=== PATIENT | male | born 1995 | race Caucasian/White ===

== ENCOUNTER 2018-02-11 02:52 | Emergency (ER) | payer OTHER ==
[2018-02-11] MEDS: MORPHINE 10 MG/ML 1ML VIAL (J2270) IM (03:47)
[2018-02-11] MEDS: NORCO 5/325MG TABLET (BULK FOR ED) PO (04:52)
== END 2018-02-11 04:56 | disposition home or self-care (01) ==
LOC: M ED 02:52
DX: S82.445A Nondisplaced spiral fracture of shaft of left fibula, initial encounter for closed fracture (principal); S82.62XA Displaced fracture of lateral malleolus of left fibula, initial encounter for closed fracture; W10.8XXA Fall (on) (from) other stairs and steps, initial encounter; Y92.009 Unspecified place in unspecified non-institutional (private) residence as the place of occurrence of the external cause; F17.200 Nicotine dependence, unspecified, uncomplicated
CPT/HCPCS: J2270

== ENCOUNTER 2018-06-26 11:19 | Emergency (ER) | payer OTHER ==
[~2018-06-26] VITALS: Ht 185.4 cm; Wt 92.5 kg
[2018-06-26] MEDS ORDERED: ACETAMINOPHEN 325 MG TAB PO ONE (12:00)
--- NOTE | 2018-06-26 12:14 | REP ---
CT Head without contrast HISTORY: Fall COMPARISON: None There is no intraparenchymal hemorrhage, acute infarct, mass or midline shift. The ventricular system is normal in appearance. There is no extra cerebral collection. There is no fracture. The visualized sinuses are clear. IMPRESSION: There is no intracranial lesion. Electronically Signed by Bob Boykin MD 06/26/2018 12:06 P
[2018-06-26 12:41] VITALS: BP 130/67
== END 2018-06-26 12:46 | disposition home or self-care (01) ==
LOC: M ED 11:19
DX: S06.0X1A Concussion with loss of consciousness of 30 minutes or less, initial encounter (principal); W00.0XXA Fall on same level due to ice and snow, initial encounter; Y92.139 Unspecified place military base as the place of occurrence of the external cause; Y99.1 Military activity; F17.210 Nicotine dependence, cigarettes, uncomplicated

== ENCOUNTER 2019-08-09 01:33 | Emergency (ER) | payer OTHER ==
[~2019-08-09] VITALS: Ht 185.4 cm; Wt 87.7 kg
[2019-08-09 01:41] VITALS: BP 127/89
== END 2019-08-09 03:16 | disposition home or self-care (01) ==
LOC: M ED 01:33
DX: F10.10 Alcohol abuse, uncomplicated (principal); F41.8 Other specified anxiety disorders

== ENCOUNTER 2019-11-30 17:55 | Emergency (ER) | payer OTHER ==
[~2019-11-30] VITALS: Ht 185.4 cm; Wt 90.0 kg
[2019-11-30 18:25] LABS: HEMATOCRIT 50.4 % (42.0-52.0); HEMOGLOBIN 17.8 g/dl (13.5-17.5); MEAN CORPUSCULAR HEMOGLOBIN 31.9 pg (27.0-33.0); MEAN CORPUSCULAR HGB CONC 35.3 g/dl (32.0-36.5); MEAN CORPUSCULAR VOLUME 90.3 fl (80.0-96.0); PLATELET COUNT, AUTOMATED 227 10^3/uL (150-450); RED BLOOD COUNT 5.58 10^6/uL (4.30-6.10); WHITE BLOOD COUNT 12.7 10^3/uL (4.0-10.0)
[2019-11-30 18:48] LABS: AMPHETAMINES LEVEL URINE NEGATIVE (NEGATIVE); BARBITURATES URINE NEGATIVE (NEGATIVE); BENZODIAZEPINES URINE NEGATIVE (NEGATIVE); CANNABINOIDS URINE NEGATIVE (NEGATIVE); COCAINE METABOLITE URINE NEGATIVE (NEGATIVE); METHADONE URINE NEGATIVE (NEGATIVE); OPIATES URINE NEGATIVE (NEGATIVE); PHENCYCLIDINE URINE NEGATIVE (NEGATIVE)
[2019-11-30 19:02] LABS: ACETAMINOPHEN LEVEL < 2.0 UG/ML (10.0-30.0); ALBUMIN 4.6 GM/DL (3.2-5.2); ALT/SGPT 76 U/L (12-78); BILIRUBIN,DIRECT 0.2 MG/DL (0.0-0.2); BILIRUBIN,TOTAL 0.5 MG/DL (0.2-1.0); BLOOD UREA NITROGEN 10 MG/DL (7-18); CARBON DIOXIDE LEVEL 24 MEQ/L (21-32); CHLORIDE LEVEL 109 MEQ/L (98-107); CREATININE FOR GFR 1.01 MG/DL (0.70-1.30); ETHYL ALCOHOL (ETHANOL) 0.257 % (0.000-0.010); GLOMERULAR FILTRATION RATE > 60.0 (>60); GLUCOSE, FASTING 90 MG/DL (70-100); POTASSIUM SERUM 3.8 MEQ/L (3.5-5.1); SALICYLATE LEVEL 3.4 MG/DL (5.0-30.0); SODIUM LEVEL 142 MEQ/L (136-145); TOTAL PROTEIN 8.3 GM/DL (6.4-8.2)
[2019-11-30] MEDS ORDERED: OXAZEPAM 10 MG CAP PO ONE (22:45)
[2019-12-01 03:55] VITALS: BP 125/85
== END 2019-12-01 04:21 | disposition home or self-care (01) ==
LOC: EDBD 17:55 → M ED 17:55
DX: F10.229 Alcohol dependence with intoxication, unspecified (principal); Y90.1 Blood alcohol level of 20-39 mg/100 ml
CPT/HCPCS: 36415; 80048; 80076; 80307; 84443; 85027; 99284; G0480

== ENCOUNTER 2020-09-05 20:08 | Emergency (ER) | payer OTHER ==
[~2020-09-05] VITALS: Ht 185.4 cm; Wt 91.6 kg
[2020-09-05 20:10] VITALS: BP 141/95
[2020-09-05] MEDS ORDERED: methocarbamoL 750 MG TAB PO ONE (21:05)
--- NOTE | 2020-09-05 21:40 | REPVR ---
PROCEDURE INFORMATION: Exam: XR Right Wrist Exam date and time: 09/05/2020 9:23 PM Age: 25 years old Clinical indication: Pain; Wrist; Right TECHNIQUE: Imaging protocol: XR Right wrist. Views: 3 or more views. COMPARISON: No relevant prior studies available. 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 The lunate is absent with direct articulation of the capitate with the distal radius. The triquetrum appears to be absent as well with nothing articulating with the proximal aspect of the hamate. The pisiform appears to be present. No acute fracture. Soft tissues: Normal. IMPRESSION: 1. Absence of the lunate with direct articulation of the capitate with the distal radius and apparent absence of the triquetrum with no osseous structure along the proximal aspect of the hamate. 2. 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 3. Otherwise negative right wrist. No acute fracture. Electronically signed by: Atul James On 09/05/2020 21:40:54 PM
[2020-09-05] MEDS ORDERED: predniSONE 20 MG TAB PO ONE (22:10)
[2020-09-05] MEDS ORDERED: PRED20TA PO (22:13)
--- NOTE | 2020-09-07 13:22 | ED PDOC ---
Post-Departure Follow-Up right wrist film faxed to [facility] and [facility] in [place] for fu Alonso Espinoza MD Sep 07, 2020 13:22
== END 2020-09-05 22:22 | disposition home or self-care (01) ==
LOC: M ED 20:08
DX: M25.531 Pain in right wrist (principal); Z87.891 Personal history of nicotine dependence

== ENCOUNTER 2020-11-15 16:09 | Emergency (ER) | payer OTHER ==
[~2020-11-15] VITALS: Ht 188 cm; Wt 93.5 kg
[~2020-11-15 16:09] MED LIST: PRED20TA PO
[2020-11-15] MEDS ORDERED: NAPR500T6 PO (16:17)
[2020-11-15 19:12] LABS: HEMATOCRIT 48.9 % (42.0-52.0); MEAN CORPUSCULAR HEMOGLOBIN 30.8 pg (27.0-33.0); MEAN CORPUSCULAR HGB CONC 32.7 g/dl (32.0-36.5); MEAN CORPUSCULAR VOLUME 94.2 fl (80.0-96.0); PLATELET COUNT, AUTOMATED 252 10^3/uL (150-450); RED BLOOD COUNT 5.19 10^6/uL (4.30-6.10)
[2020-11-15 19:26] LABS: ATYPICAL LYMPH 5 % (0-5); EOSINOPHILS 1 % (0-3); LYMPHOCYTES 22 % (16-44); MONOCYTES 6 % (0-5); NEUTROPHILS 66 % (28-66); PLATELET ESTIMATE NORMAL (NORMAL)
[2020-11-15 19:32] LABS: ERYTHROCYTE SEDIMENTATION RATE 1 mm/hr (0-15)
--- NOTE | 2020-11-15 19:32 | REP ---
INDICATION: swelling COMPARISON: None. TECHNIQUE: AP, lateral, bilateral oblique views of the left elbow. FINDINGS: No acute fracture or dislocation is appreciated. Joint spaces and surrounding soft tissues appear normal. Lateral view demonstrates normal positioning to the anterior and posterior fat pads without evidence for effusion/hemarthrosis. No subcutaneous emphysema or foreign body identified. IMPRESSION: Normal elbow radiographs. <Electronically signed by Jerardo Us > 11/15/20 [id number]
[2020-11-15] MEDS ORDERED: BACTRIM 160MG/800MG DS TAB PO ONE (20:50)
[2020-11-15] MEDS ORDERED: cefTRIAXone SOD 1 GM in D5W MINI-BAG PLUS 50 ML IV ONE (20:50)
[2020-11-15] MEDS ORDERED: BACT800T5 PO (21:06)
[2020-11-15] MEDS ORDERED: INDO-16 PO (21:10)
[2020-11-15] MEDS ORDERED: INDOMETHACIN 25 MG CAP PO ONE (21:15)
[2020-11-15 21:48] VITALS: BP 136/64
--- NOTE | 2020-11-16 14:24 | ER ---
ER CONSULTATION DATE: 11/15/2020 REASON FOR CONSULTATION: Left elbow swelling and pain. HISTORY OF PRESENT ILLNESS: This 25-year-old man presented this evening to the emergency department after about 12 hours of left elbow posterior pain, swelling and redness. He did a difficult workout that really focused a lot on triceps extension and upper body last evening from 8-9 pm, now about 24 hours ago. He also did full body exercise. Does state that he has history of right elbow olecranon bursitis on the other side but nothing as bad as this. He woke up this morning and it had become red, warm, hot and painful in the posterior aspect of his left elbow. He is in the . He did not have any trauma or hit his left elbow. No foreign body. No fevers, chills, nausea, vomiting or other constitutional symptoms, he feels well. MEDICAL HISTORY: None. SURGICAL HISTORY: Tonsils removed, left ankle fracture open reduction and internal fixation and Kienbock's of right lunate. SOCIAL HISTORY: He is in the . He is right hand dominant. He vapes, does not use tobacco products, does not use intravenous drugs or methamphetamines. ALLERGIES: NO KNOWN DRUG ALLERGIES. MEDICATIONS: None. PHYSICAL EXAMINATION: Well appearing 25-year-old man, he appears nontoxic. He is overall pleasant and in no acute distress. Vital signs: Temperature 99.0, pulse rate 86, blood pressure 133/93, respiratory rate 18, 96% on room air. Inspection of bilateral upper extremities reveals moderate amount of redness, warmth and swelling overlying the left olecranon bursa area. His range of motion is full, 0-135 degrees, full pronation and supination, no pain which passive or active flexion/extension of the elbow. No obvious effusion. No drainage, no obvious foreign body. No pain in the shoulder or wrist. Forearm compartments are soft. Normal sensation and motor function of the hand. Hand is warm and well perfused, strong radial pulse. Normal sensation and motor function of median, radial and ulnar nerves as well AIN/PIN. LABORATORY DATA: Blood work revealed white blood cell count to 18. Nucleated cell percentage not performed. Neutrophils total 66, lymphocytes manual 22, monocytes 6. ESR 1, CRP under 0.3. Lactic acid 1.2. IMAGING DATA: Radiographs of the elbow were taken and reviewed by myself as well as radiologist and states normal left elbow radiographs. ASSESSMENT/PLAN: This 25-year-old man appears to have an infected left elbow olecranon bursitis. There are no signs of acute septic elbow or intraarticular process. This has been going on now for about 12 hours and he is young and healthy without risk factors. Therefore my opinion is outpatient antibiotic and antiinflammatory treatment is certainly reasonable first step. This will be with broad spectrum MRSA coverage which we have decided to treat with 10 days of oral Bactrim as well as one dose of intravenous Ceftriaxone in the emergency department. He should have close follow up with the physicians at [facility] and we have counseled him on red flag symptoms and when to return to the ED if needed such as spreading redness, increased fevers, warmth, difficulty or inability to move the elbow and other red flag symptoms. If he fails to improve on outpatient antibiotics consideration will be given to aspiration and/or excision and irrigation and debridement of the bursa area. He understands and had no further questions and may be discharged home today with close outpatient follow up. CAT
== END 2020-11-15 21:50 | disposition home or self-care (01) ==
LOC: M ED 16:09
DX: M71.122 Other infective bursitis, left elbow (principal); Z77.098 Contact with and (suspected) exposure to other hazardous, chiefly nonmedicinal, chemicals
CPT/HCPCS: 73080; 80047; 83605; 85025; 85652; 86140; 87040; 96365; 99284; J0696

== ENCOUNTER 2021-03-13 15:26 | Inpatient (IN) | payer OTHER ==
[~2021-03-13] VITALS: Ht 182.9 cm; Wt 130.0 kg
[~2021-03-13 15:26] MED LIST changes: +BACT800T5 PO; +INDO-16 PO; +NAPR500T6 PO
[2021-03-13 18:09] LABS: HEMATOCRIT 51.4 % (42.0-52.0); HEMOGLOBIN 17.7 g/dl (13.5-17.5); MEAN CORPUSCULAR HEMOGLOBIN 31.5 pg (27.0-33.0); MEAN CORPUSCULAR HGB CONC 34.4 g/dl (32.0-36.5); MEAN CORPUSCULAR VOLUME 91.5 fl (80.0-96.0); PLATELET COUNT, AUTOMATED 232 10^3/uL (150-450); RED BLOOD COUNT 5.62 10^6/uL (4.30-6.10); WHITE BLOOD COUNT 11.5 10^3/uL (4.0-10.0)
[2021-03-13 18:32] LABS: AMPHETAMINES LEVEL URINE NEGATIVE (NEGATIVE); BARBITURATES URINE NEGATIVE (NEGATIVE); BENZODIAZEPINES URINE NEGATIVE (NEGATIVE); CANNABINOIDS URINE NEGATIVE (NEGATIVE); COCAINE METABOLITE URINE NEGATIVE (NEGATIVE); METHADONE URINE NEGATIVE (NEGATIVE); OPIATES URINE NEGATIVE (NEGATIVE); PHENCYCLIDINE URINE NEGATIVE (NEGATIVE)
[2021-03-13 18:46] LABS: ACETAMINOPHEN LEVEL < 2.0 UG/ML (10.0-30.0); ALT/SGPT 50 U/L (12-78); BILIRUBIN,DIRECT 0.1 MG/DL (0.0-0.2); BILIRUBIN,TOTAL 0.8 MG/DL (0.2-1.0); BLOOD UREA NITROGEN 19 MG/DL (7-18); CALCIUM LEVEL 9.2 MG/DL (8.5-10.1); CARBON DIOXIDE LEVEL 27 MEQ/L (21-32); CHLORIDE LEVEL 104 MEQ/L (98-107); CREATININE FOR GFR 1.14 MG/DL (0.70-1.30); ETHYL ALCOHOL (ETHANOL) < 0.003 % (0.000-0.010); GLOMERULAR FILTRATION RATE > 60.0 (>60); GLUCOSE, FASTING 92 MG/DL (70-100); POTASSIUM SERUM 4.5 MEQ/L (3.5-5.1); SALICYLATE LEVEL < 1.7 MG/DL (5.0-30.0); SODIUM LEVEL 138 MEQ/L (136-145); TOTAL PROTEIN 7.4 GM/DL (6.4-8.2)
[2021-03-13 22:02] LABS: RSV AMPLIFICATION NEGATIVE (NEGATIVE)
[2021-03-13] MEDS ORDERED: MOM 30ML SUSPENSION UDC PO PRN (22:30)
[2021-03-13] MEDS ORDERED: ACETAMINOPHEN TAB 650MG DOSE (2X325MG) PO PRN (22:30)
[2021-03-13] MEDS ORDERED: MAALOX 30 ML SUSP *UDC PO PRN (22:30)
[2021-03-13] MEDS ORDERED: HOME MED LIST COMPLETE! XX SCH (22:45)
[2021-03-14] MEDS: traZODone 50 MG TAB PO PRN ×2 (00:36→20:11)
[2021-03-14 01:02] VITALS: BP 138/80
[2021-03-14 06:00] VITALS: BP 123/74
[2021-03-14] MEDS ORDERED: INFLUENZA QUADRIVALENT PF VACCINE 0.5ML SYRINGE IM ONE (09:00)
[2021-03-14] MEDS: NICOTINE 14 MG/24 HR TRANSDERMAL TD SCH (09:00)
[2021-03-14] MEDS: SERTRALINE HCL 50 MG TAB PO SCH (10:00)
--- NOTE | 2021-03-14 12:15 | HPEPDOC ---
General Date of Admission Mar 13, 2021 at 22:28 Date of Service: Mar 14, 2021 Chief Complaint The patient is a 25-year-old male admitted with a reason for visit of Unspecified Depressive Disorder. Source: Patient Exam Limitations: No limitations History of Present Illness Patient is 25 years old male without significant past medical history presented to hospital with suicidal ideation. Patient stated that he drank heavily all weekend and developed some suicidal ideation. Patient stated that he usually drinks on weekend. He denied any history of depression or anxiety. During my interview patient denied fever, chills, chest pain, palpitations, diarrhea or dysuria Home Medications No Active Prescriptions or Reported Meds Allergies Coded Allergies: No Known Allergies (Unverified , 06/26/18) Past Medical History Medical History No known medical history Family History Mother from heroin overdose Father is alcoholic Social History * Smoker: current smoker Alcohol: heavy Drugs: denies A-FIB/CHADSVASC A-FIB History Current/History of A-Fib/PAF?: No Current PO Anticoag Therapy: No Review of Systems Constitutional: Denies: Chills Eyes: Denies: Pain ENT: Denies: Head Aches Skin: Denies: Lesions Pulmonary: Denies: Dyspnea Cardiovascular: Denies: Chest Pain Gastrointestinal: Denies: Nausea Genitourinary: Denies: Dysuria Hematologic: Denies: Bruising Endocrine: Denies: Polydipsia Musculoskeletal: Denies: Neck Pain Neurological: Denies: Weakness Psych: Reports: Depression Physical Examination General Exam: Positive: Alert Eye Exam: Positive: PERRLA ENT Exam: Positive: Atraumatic Neck Exam: Positive: Supple; Negative: JVD Chest Exam: Positive: Clear to auscultation Heart Exam: Positive: Rate Normal Telemetry: Positive: No significant arrhythmia Abdomen Exam: Positive: Normal bowel sounds Extremity Exam: Negative: Clubbing Skin Exam: Positive: Nl turgor and temperature Neuro Exam: Positive: Normal Gait Psych Exam: Positive: Oriented x 3 Vital Signs Vital Signs Date Time Temp Pulse Resp B/P (MAP) Pulse Ox O2 Delivery O2 Flow Rate FiO2 03/14/21 06:00 98.2 65 14 123/74 (90) 96 03/14/21 01:02 Room Air Laboratory Data Labs 24H Laboratory Tests 2 03/13/21 16:49: Nucleated Red Blood Cells % (auto) 0.0, Anion Gap 7L, Glomerular Filtration Rate > 60.0, Calcium Level 9.2, Total Bilirubin 0.8, Direct Bilirubin 0.1, Aspartate Amino Transf (AST/SGOT) 47H, Alanine Aminotransferase (ALT/SGPT) 50, Alkaline Phosphatase 78, Total Protein 7.4, Albumin 4.0, Albumin/Globulin Ratio 1.2, Thyroid Stimulating Hormone (TSH) 0.590, Salicylates Level < 1.7L, Urine Opiates Screen NEGATIVE, Urine Methadone Screen NEGATIVE, Acetaminophen Level < 2.0L, Urine Barbiturates Screen NEGATIVE, Urine Phencyclidine Screen NEGATIVE, Urine Amphetamines Screen NEGATIVE, Urine Benzodiazepines Screen NEGATIVE, Urine Cocaine Metabolite Screen NEGATIVE, Urine Cannabinoids Screen NEGATIVE, Ethyl Alcohol Level < 0.003 03/13/21 21:19: Coronavirus (COVID-19)(PCR) NEGATIVE, Influenza Type A (RT-PCR) NEGATIVE, Influenza Type B (RT-PCR) NEGATIVE, Respiratory Syncytial Virus (PCR) NEGATIVE CBC/BMP Laboratory Tests 03/13/21 16:49 Assessment/Plan Patient is 25 years old male without significant past medical history presented to hospital with suicidal ideation. Patient stated that he drank heavily all weekend and developed some suicidal ideation. Patient stated that he usually drinks on weekend. He denied any history of depression or anxiety. During my interview patient denied fever, chills, chest pain, palpitations, diarrhea or dysuria Problems (1) Suicidal ideation Status: Acute Problem Text: Defer treatment to psych team Plan / VTE VTE Prophylaxis Ordered?: No VTE Exclusion Mechanical Proph: Low Risk for VTE RUBEN SAXENA DO Mar 14, 2021 12:15
[2021-03-14 18:36] VITALS: BP 152/62
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
[2021-03-15 06:17] VITALS: BP 152/79
[2021-03-15] MEDS: SERTRALINE HCL 50 MG TAB PO SCH (08:07)
[2021-03-15] MEDS: NICOTINE 14 MG/24 HR TRANSDERMAL TD SCH (08:08)
[2021-03-15] MEDS ORDERED: TRAZ-252 PO (10:18)
[2021-03-15] MEDS ORDERED: SERT50TA29 PO (10:18)
[2021-03-15] MEDS ORDERED: NICO14PA TD (10:18)
--- NOTE | 2021-03-15 11:09 | MHDSPDOC ---
[facility] Discharge Summary Discharge Summary DATE OF ADMISSION: Mar 13, 2021 at 22:28 DATE OF DISCHARGE: March 15, 2021 at 1019 DISCHARGE DIAGNOSES: 1. Unspecified depressive disorder 2. Alcohol use disorder 3. Unspecified trauma/stressor disorder 4. Alcohol Induced Depressive Disorder REASON FOR ADMISSION: Patient is a 25 -year-old , male, who, per ED report: "Pt states "I had a lot to drink last night, had a plan to hang myself, draped a rope over the rafter in my room, with the intent to kill myself, then snapped out of it and realized it was stupid." Pt states he has been drinking excessively over the past month over stressors at work. Per history, pt. has been seen for alcohol related instances on a few occasions. 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 Pt states he was sober for the past six months, but has turned to drinking one to two bottles of vodka per weekend. Pt states he wants to live to accomplish more in the , therefore sought help from his [employer] and came for an kaitlin luation. 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 Pt states he feels he let his platoon down. Pt states he lost his mother four years ago to a heroin overdose. Additionally, pt.s father, brother, and sister are alcoholics. Pt states his grandmother and aunt raised him since he was [age]. Pt is single, living in the [place], and considers his [employer] as his main support locally. Pt is superficially interested in seeking help for his alcoholism and states he plans on returning to [facility]. Pt was previously seen by [facility] but has not been compliant with treatment since April 2020. Pt also states he would like to attend and has a friend that will go with him." VITAL SIGNS: See below. CONSULTANTS INVOLVED: See Medical H + P by Hospitalist TREATMENT AND PROGRESS ON THE UNIT: Patient was admitted to the [facility] on a legal status was afforded the following treatment modalities: 1) Individual Therapy 2) Group Therapy 3) Medication Management 4) Milieu Therapy 5) Safe Environment HOSPITAL COURSE: Patient was admitted to [facility] on a 9.39 legal status. He was reporting suicidal ideations which he states was exacerbated by alcohol. He was started on Zoloft for depression and Trazodone for insomnia. Pt found medications beneficial and tolerated them well. Mood, anxiety, and intrusive thoughts improved with treatment. Pt attended groups daily during stay. Pts symptoms improved with treatment. On day of discharge pt. denied depression, anxiety, insomnia, SI/HI, hallucinations, delusions. Pt was discharged home with follow-up with [facility]. Pt felt safe for discharge, denies continued suicidality and reports he has not had any thoughts, planning or intent since prior to his admission. DISCHARGE ASSESSMENT: In today's interview, patient is alert and oriented, pt.s dress is appropriate. Hygiene and grooming is well-kempt. Smiles on approach and is pleasant and engaged in the interview. Denies depression and anxiety. Denies suicidal and homicidal ideation, planning or intent. Denies and is not observed with bairon, psychotic symptoms of delusions, bizarre thinking, obsessions, paranoia, ruminations illogical thoughts, flight of ideas or having poor insight and judgement. Reinforced with patient need to abstain from alcohol and drugs. At discharge patient has normal mentation, declines further hospitalization on a voluntary status and meets criteria for discharge today. Patient encouraged to return to hospital if symptoms worsen or change and encouraged to call unit if he/she/they needs to speak to provider for questions regarding medications or care. He is unsure that he wants to continue the Zoloft but states that he will take the Trazodone as he has had trouble sleeping for awhile. Discussed indications of medications, potential benefits and risks, alternatives (including no treatment) and questions were encouraged and answered. Patient verbalized understanding. 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 Speech: Is fluid, conversant, normal rate, tone and volume Language skills are intact Thought processes including: linear and goal oriented Thought content: denies depression and anxiety. Denies suicidal/homicidal ideation, planning or intent. Abstract reasoning, and computation: fair Description of associations: denies, none observed Description of abnormal or psychotic thoughts: denies, none observed. Judgment: fair Insight: fair Orientation: alert and oriented to person, place, time and situation Recent and remote memory: intact Attention span and concentration: good Language: expansive Fund of knowledge: average Mood: Euthymic Mood Affect: reactive Suicide Risk Assessment: 1) Does the patient wish to be ? No 2) Since your admission, have you had any actual thought of killing yourself? No 3) Since your admission, have you been thinking about how you might do this? No 4) Since your admission, have you had these thoughts and had some intention of acting on them? No 5) Since your admission, have you started to work out or worked out the details of how to kill yourself? No 5A) Do you intent to carry out this plan? No and NA 6) Have you ever done anything, started anything, or prepared to do anything with any intent to ? No 6A) How long since your admission did you do any of these? NA MEDICATIONS ON DISCHARGE: See Medication Reconciliation PLAN/FOLLOWUP ARRANGEMENTS: Patient is being discharged with [employer]. He is following up with Behavioral Health. Have encouraged patient to seek outpatient services for rehab (ETOH) The amount of time spent in the coordination of care for this patient was approximately 25 minutes. ETOH/Disorder Med Rx ETOH/DRUG DISORDER RX: Offrd @ d/c & pt refused Vital Signs/I&Os Vital Signs Date Time Temp Pulse Resp B/P (MAP) Pulse Ox O2 Delivery O2 Flow Rate FiO2 03/15/21 06:17 96.6 56 16 152/79 (103) 100 Room Air Medications Scheduled Nicotine (Nicotine Patch) 14 Mg Patch.td24, 1 PATCH TD DAILY for Nicotine Withdrawal, #7 Sertraline HCl (Sertraline HCl) 50 Mg Tablet, 50 MG PO DAILY for Depression, #7 Scheduled PRN Trazodone HCl (Trazodone HCl) 50 Mg Tablet, 50 MG PO QHSP PRN for INSOMNIA, #7 Allergies Coded Allergies: No Known Allergies (Unverified , 06/26/18) LUCA SANCHEZ NP Mar 15, 2021 10:22
--- NOTE | 2021-03-16 12:44 | MHIPNPDOC ---
[facility] Progress Note Progress Note DATE OF SERVICE: 03/13/21 LATE ENTRY: 03/16/21 This underwriter discussed patient's case with ED staff member and recommended admission since he had SI with hanging, multiple risk factors, recent losses and a h/o alcohol abuse which made him particularly vulnerable. He was admitted to [facility]. Vital Signs Vital Signs Date Time Temp Pulse Resp B/P (MAP) Pulse Ox O2 Delivery O2 Flow Rate FiO2 03/15/21 06:17 96.6 56 16 152/79 (103) 100 Room Air Current Medications Current Medications Medications (Trade) Dose Ordered Sig/Harriet Route PRN Reason Start Time Stop Time Status Last Admin Dose Admin Acetaminophen (Tylenol Tab) 650 mg Q6HP PRN PO HEADACHE or MILD DISCOMFORT 03/13/21 22:30 03/15/21 13:27 DC Al Hydrox/Mg Hydrox/Simethicone (Mylanta) 30 ml Q4HP PRN PO HEARTBURN/INDIGESTION 03/13/21 22:30 03/15/21 13:27 DC Home Med (Home Med List Complete!) ASDIRECTED XX 03/13/21 22:45 03/13/21 22:46 DC Magnesium Hydroxide (Milk Of Magnesia) 30 ml DAILYPRN PRN PO CONSTIPATION 03/13/21 22:30 03/15/21 13:27 DC Nicotine (Nicoderm Cq 14mg) 1 patch DAILY TD 03/14/21 09:00 03/15/21 13:27 DC 03/15/21 08:08 Sertraline HCl (Zoloft) 50 mg DAILY PO 03/14/21 09:00 03/15/21 13:27 DC 03/15/21 08:07 Trazodone HCl (Desyrel) 50 mg QHSP PRN PO INSOMNIA 03/13/21 22:30 03/15/21 13:27 DC 03/14/21 20:11 Allergies Coded Allergies: No Known Allergies (Unverified , 06/26/18) SUZI DAVIS MD Mar 16, 2021 12:44
== END 2021-03-15 13:27 | disposition home or self-care (01) | DRG 881 ==
LOC: M ED 15:26 → M ED INP 22:28 → M PSY 23:50
PROVIDERS: ADMIT Psychiatry & Neurology Psychiatry; ATTEND Psychiatry & Neurology Psychiatry
DX: F32.9 Major depressive disorder, single episode, unspecified (principal); R45.851 Suicidal ideations; F10.14 Alcohol abuse with alcohol-induced mood disorder; F17.200 Nicotine dependence, unspecified, uncomplicated; F43.9 Reaction to severe stress, unspecified; Z81.1 Family history of alcohol abuse and dependence; Z81.8 Family history of other mental and behavioral disorders; Z81.3 Family history of other psychoactive substance abuse and dependence; Z20.822 Contact with and (suspected) exposure to COVID-19

== ENCOUNTER 2021-04-25 01:49 | Emergency (ER) | payer OTHER ==
[~2021-04-25] VITALS: Ht 188 cm; Wt 88.6 kg
--- NOTE | 2021-04-25 01:34 | REPVR ---
PROCEDURE INFORMATION: Exam: CT Head Without Contrast Exam date and time: 04/25/2021 1:18 AM Age: 25 years old Clinical indication: Injury or trauma; Fall; Blunt trauma (contusions or hematomas); Additional info: Fall, AMS, ETOH TECHNIQUE: Imaging protocol: Computed tomography of the head without contrast. Radiation optimization: All CT scans at this facility use at least one of these dose optimization techniques: automated exposure control; mA and/or kV adjustment per patient size (includes targeted exams where dose is matched to clinical indication); or iterative reconstruction. COMPARISON: CT Head without contrast 2018-06-26 11:48 FINDINGS: Brain: Normal. No hemorrhage. Unremarkable white matter. No mass effect. Cerebral ventricles: No ventriculomegaly. Paranasal sinuses: Visualized sinuses are unremarkable. No fluid levels. Mastoid air cells: Visualized mastoid air cells are well aerated. Bones/joints: Calvarium intact without fractures. Soft tissues: Right parietal subgaleal scalp hematoma. Left anterior frontal scalp hematoma. IMPRESSION: 1. No acute intracranial abnormality. 2. Right parietal subgaleal scalp hematoma. Left anterior frontal scalp hematoma. Electronically signed by: Curly Webber On 04/25/2021 01:34:10 AM
--- NOTE | 2021-04-25 01:42 | REPVR ---
PROCEDURE INFORMATION: Exam: CT Cervical Spine Without Contrast Exam date and time: 04/25/2021 1:18 AM Age: 25 years old Clinical indication: Injury or trauma; Fall; Blunt trauma; Additional info: Fall, AMS, ETOH TECHNIQUE: Imaging protocol: Computed tomography images of the cervical spine without contrast. Radiation optimization: All CT scans at this facility use at least one of these dose optimization techniques: automated exposure control; mA and/or kV adjustment per patient size (includes targeted exams where dose is matched to clinical indication); or iterative reconstruction. COMPARISON: CT Head without contrast 2018-06-26 11:48 FINDINGS: Bones/joints: Normal spinal curvature, vertebral body heights, and alignment. No spinal fracture or acute subluxation. Discs/Spinal canal/Neural foramina: No significant disc protrusion. No severe spinal canal stenosis. No significant neural foraminal narrowing. Lungs: Lung apices are normal. Soft tissues: Unremarkable. IMPRESSION: No acute vertebral fracture/subluxation. Electronically signed by: Curly Webber On 04/25/2021 01:42:03 AM
--- NOTE | 2021-04-25 01:46 | REPVR ---
PROCEDURE INFORMATION: Exam: CT Maxillofacial Without Contrast Exam date and time: 04/25/2021 1:18 AM Age: 25 years old Clinical indication: Injury or trauma; Fall; Blunt trauma (contusions or hematomas); Forehead; Additional info: Fall, AMS, ETOH TECHNIQUE: Imaging protocol: Computed tomography images of the face without contrast. Radiation optimization: All CT scans at this facility use at least one of these dose optimization techniques: automated exposure control; mA and/or kV adjustment per patient size (includes targeted exams where dose is matched to clinical indication); or iterative reconstruction. COMPARISON: CT Head without contrast 2018-06-26 11:48 FINDINGS: Limitations: Dental amalgam artifact obscures the oral cavity and oral pharynx. Orbital cavity: Orbits are normal. Globes are unremarkable. Bones/joints: Vague fracture lines through the bilateral mandible ramus are nondisplaced, and appear healing and or chronic, correlate. Paranasal sinuses: Associated odontogenic mild maxillary sinus disease. Soft tissues: Left forehead and lateral periorbital soft tissue contusion and swelling. Scalp contusion. Dental: Dental disease with dental caries and periapical lucencies. IMPRESSION: 1. Vague fracture lines through the bilateral mandible ramus are nondisplaced, and appear healing and or chronic, correlate. 2. Dental disease with dental caries and periapical lucencies. Associated odontogenic mild maxillary sinus disease. Electronically signed by: Curly Webber On 04/25/2021 01:45:25 AM
[~2021-04-25 01:49] MED LIST changes: +NICO14PA TD; +NS 1,000 ML IV ONE; +SERT50TA29 PO; +TRAZ-252 PO
--- OUTSIDE RECORDS SUMMARY | 2021-04-25 01:53 | CCD ---
Author Author [facility] Organization [facility] Address Unknown Phone Unavailable Care Team Providers Care Youtuber Name Role Phone [facility], [facility] [place] Unavailable Unavailable TURRIN, PERRY Unavailable Unavailable TURRIN, PERRY Unavailable Unavailable TURRIN, PERRY Unavailable Unavailable TURRIN, PERRY Unavailable Unavailable BENNETT,, NEW REYES Unavailable Unavailable BENNETT,, NEW REYES Unavailable Unavailable BENNETT,, NEW REYES Unavailable Unavailable BENNETT,, NEW REYES Unavailable Unavailable BENNETT,, NEW REYES Unavailable Unavailable BENNETT,, NEW REYES Unavailable Unavailable BENNETT,, NEW REYES Unavailable Unavailable BENNETT,, NEW REYES Unavailable Unavailable BENNETT,, NEW REYES Unavailable Unavailable BENNETT,, NEW REYES Unavailable Unavailable BENNETT,, NEW AMY Unavailable Unavailable BENNETT,, NEW REYES Unavailable Unavailable BENNETT,, NEW REYES Unavailable Unavailable PFLUGH, TIGIST ORDERING MACHINE OPERATOR Unavailable Unavailable PFLUGH, TIGIST ORDERING MACHINE OPERATOR Unavailable Unavailable PFLUGH, TIGIST ORDERING MACHINE OPERATOR Unavailable Unavailable PFLUGH, TIGIST ORDERING MACHINE OPERATOR Unavailable Unavailable PFLUGH, TIGIST ORDERING MACHINE OPERATOR Unavailable Unavailable PFLUGH, TIGIST ORDERING MACHINE OPERATOR Unavailable Unavailable PFLUGH, TIGIST ORDERING MACHINE OPERATOR Unavailable Unavailable PFLUGH, TIGIST ORDERING MACHINE OPERATOR Unavailable Unavailable PFLUGH, TIGIST ORDERING MACHINE OPERATOR Unavailable Unavailable PFLUGH, TIGIST ORDERING MACHINE OPERATOR Unavailable Unavailable PFLUGH, TIGIST ORDERING MACHINE OPERATOR Unavailable Unavailable PFLUGH, TIGIST ORDERING MACHINE OPERATOR Unavailable Unavailable PFLUGH, TIGIST ORDERING MACHINE OPERATOR Unavailable Unavailable PFLUGH, TIGIST ORDERING MACHINE OPERATOR Unavailable Unavailable PFLUGH, TIGIST ORDERING MACHINE OPERATOR Unavailable Unavailable PFLUGH, TIGIST ORDERING MACHINE OPERATOR Unavailable Unavailable PFLUGH, TIGIST ORDERING MACHINE OPERATOR Unavailable Unavailable PFLUGH, TIGIST ORDERING MACHINE OPERATOR Unavailable Unavailable PFLUGH, TIGIST ORDERING MACHINE OPERATOR Unavailable Unavailable PFLUGH, TIGIST ORDERING MACHINE OPERATOR Unavailable Unavailable PFLUGH, TIGIST ORDERING MACHINE OPERATOR Unavailable Unavailable PFLUGH, TIGIST ORDERING MACHINE OPERATOR Unavailable Unavailable PFLUGH, TIGIST ORDERING MACHINE OPERATOR Unavailable Unavailable PFLUGH, TIGIST ORDERING MACHINE OPERATOR Unavailable Unavailable PFLUGH, TIGIST ORDERING MACHINE OPERATOR Unavailable Unavailable PFLUGH, TIGIST ORDERING MACHINE OPERATOR Unavailable Unavailable PFLUGH, TIGIST ORDERING MACHINE OPERATOR Unavailable Unavailable PFLUGH, TIGIST ORDERING MACHINE OPERATOR Unavailable Unavailable PFLUGH, TIGIST ORDERING MACHINE OPERATOR Unavailable Unavailable PFLUGH, TIGIST ORDERING MACHINE OPERATOR Unavailable Unavailable PFLUGH, TIGIST ORDERING MACHINE OPERATOR Unavailable Unavailable PFLUGH, TIGIST ORDERING MACHINE OPERATOR Unavailable Unavailable PFLUGH, TIGIST ORDERING MACHINE OPERATOR Unavailable Unavailable PFLUGH, TIGIST ORDERING MACHINE OPERATOR Unavailable Unavailable PFLUGH, TIGIST ORDERING MACHINE OPERATOR Unavailable Unavailable PFLUGH, TIGIST ORDERING MACHINE OPERATOR Unavailable Unavailable PFLUGH, TIGIST ORDERING MACHINE OPERATOR Unavailable Unavailable PFLUGH, TIGIST ORDERING MACHINE OPERATOR Unavailable Unavailable PFLUGH, TIGIST ORDERING MACHINE OPERATOR Unavailable Unavailable PFLUGH, TIGIST ORDERING MACHINE OPERATOR Unavailable Unavailable PFLUGH, TIGIST ORDERING MACHINE OPERATOR Unavailable Unavailable PFLUGH, TIGIST ORDERING MACHINE OPERATOR Unavailable Unavailable PFLUGH, TIGIST ORDERING MACHINE OPERATOR Unavailable Unavailable PFLUGH, TIGIST ORDERING MACHINE OPERATOR Unavailable Unavailable PERNELL ARMAS MD Unavailable Unavailable PERNELL ARMAS MD Unavailable Unavailable PERNELL ARMAS MD Unavailable Unavailable PERENLL ARMAS MD Unavailable Unavailable PERNELL ARMAS MD Unavailable Unavailable PERNELL ARMAS MD Unavailable Unavailable PERNELL ARMAS MD Unavailable Unavailable PERNELL ARMAS MD Unavailable Unavailable PERNELL ARMAS MD Unavailable Unavailable PERNELL ARMAS MD Unavailable Unavailable PERNELL ARMAS MD Unavailable Unavailable PERNELL ARMAS MD Unavailable Unavailable PERNELL ARMAS MD Unavailable Unavailable PERNELL ARMAS MD Unavailable Unavailable PERNELL ARMAS MD Unavailable Unavailable PERNELL AMRAS MD Unavailable Unavailable PERNELL ARMAS MD Unavailable Unavailable PERNELL ARMAS MD Unavailable Unavailable PERNELL ARMAS MD Unavailable Unavailable PERNELL ARMAS MD Unavailable Unavailable PERNELL ARMAS MD Unavailable Unavailable PERNELL ARMAS MD Unavailable Unavailable PERNELL ARMAS MD Unavailable Unavailable PERNELL ARMAS MD Unavailable Unavailable PERNELL ARMAS MD Unavailable Unavailable PERNELL RAMAS MD Unavailable Unavailable CHANDAPERNELL TAM MD Unavailable Unavailable CHANDAPERNELL TAM MD Unavailable Unavailable CHANDAPERNELL TAM MD Unavailable Unavailable CHANDAPERNELL TAM MD Unavailable Unavailable CHANDAPERNELL TAM MD Unavailable Unavailable CHANDAPERNELL TAM MD Unavailable Unavailable CHANDAPERNELL TAM MD Unavailable Unavailable CHANDAPERNELL TAM MD Unavailable Unavailable PERNELL ARMAS MD Unavailable Unavailable CHANDAPERNELL TAM MD Unavailable Unavailable CHANDAPERNELL TAM MD Unavailable Unavailable CHANDAPERNELL TAM MD Unavailable Unavailable CHANDAPERNELL TAM MD Unavailable Unavailable CHANDAPERNELL TAM MD Unavailable Unavailable CHANDAPERNELL TAM MD Unavailable Unavailable CHANDAPERNELL TAM MD Unavailable Unavailable CHANDAPERNELL TAM MD Unavailable Unavailable CHANDAPERNELL TAM MD Unavailable Unavailable CHANDAPERNELL TAM MD Unavailable Unavailable PERNELL ARMAS MD Unavailable Unavailable CHANDAPERNELL TAM MD Unavailable Unavailable CHANDAPERNELL TAM MD Unavailable Unavailable PERNELL ARMAS MD Unavailable Unavailable PERNELL ARMAS MD Unavailable Unavailable PERNELL ARMAS MD Unavailable Unavailable PERNELL ARMAS MD Unavailable Unavailable PERNELL ARMAS MD Unavailable Unavailable PERNELL ARMAS MD Unavailable Unavailable PERNELL ARMAS MD Unavailable Unavailable PERNELL ARMAS MD Unavailable Unavailable PERNELL ARMAS MD Unavailable Unavailable PERNELL ARMAS MD Unavailable Unavailable PERNELL ARMAS MD Unavailable Unavailable PERNELL ARMAS MD Unavailable Unavailable PERNELL ARMAS MD Unavailable Unavailable PERNELL ARMAS MD Unavailable Unavailable PERNELL ARMAS MD Unavailable Unavailable PERNELL ARMAS MD Unavailable Unavailable PERNELL ARMAS MD Unavailable Unavailable PERNELL ARMAS MD Unavailable Unavailable PERNELL ARMAS MD Unavailable Unavailable PERNELL ARMAS MD Unavailable Unavailable PERNELL ARMAS MD Unavailable Unavailable PERNELL ARMAS MD Unavailable Unavailable PERNELL ARMAS MD Unavailable Unavailable PERNELL ARMAS MD Unavailable Unavailable PERNELL ARMAS MD Unavailable Unavailable PERNELL ARMAS MD Unavailable Unavailable PERNELL ARMAS MD Unavailable Unavailable PERNELL ARMAS MD Unavailable Unavailable PERNELL ARMAS MD Unavailable Unavailable PERNELL ARMAS MD Unavailable Unavailable PERNELL ARMAS MD Unavailable Unavailable PERNELL ARMAS MD Unavailable Unavailable PERNELL ARMAS MD Unavailable Unavailable PERNELL ARMAS MD Unavailable Unavailable PERNELL ARMAS MD Unavailable Unavailable PERNELL ARMAS MD Unavailable Unavailable PERNELL ARMAS MD Unavailable Unavailable NON, PHYSICIAN STAFF Unavailable Unavailable Re-disclosure Warning The records that you are about to access may contain information from federally-assisted alcohol or drug abuse programs. If such information is present, then the following federally mandated warning applies: This information has been disclosed to you from records protected by federal confidentiality rules (42 CFR part 2). The federal rules prohibit you from making any further disclosure of this information unless further disclosure is expressly permitted by the written consent of the person to whom it pertains or as otherwise permitted by 42 CFR part 2. A general authorization for the release of medical or other information is NOT sufficient for this purpose. The Federal rules restrict any use of the information to criminally investigate or prosecute any alcohol or drug abuse patient.The records that you are about to access may contain highly sensitive health information, the redisclosure of which is protected by Article 27-F of the [facility] Public Health law. If you continue you may have access to information: Regarding HIV / AIDS; Provided by facilities licensed or operated by the [facility] Office of Mental Health; or Provided by the [facility] Office for People With Developmental Disabilities. If such information is present, then the following [facility] mandated warning applies: This information has been disclosed to you from confidential records which are protected by state law. State law prohibits you from making any further disclosure of this information without the specific written consent of the person to whom it pertains, or as otherwise permitted by law. Any unauthorized further disclosure in violation of state law may result in a fine or assisted sentence or both. A general authorization for the release of medical or other information is NOT sufficient authorization for further disc losure. Allergies and Adverse Reactions Type Description Substance Reaction Status Data Source(s ) No Known Allergies No Known Allergies [facility] Hospital Encounters Encounter Providers Location Date Indications Data Source(s ) Outpatient Attender: [facility] 11/16/2020 02:2 6:00 PM EDT [facility] Emergency Attender: PERRY PATELConsultant: STAFF NON 11/16/2020 01:47:00 PM EDT - 11/16/2020 05:05:00 PM EDT [facility] H[facility] ital Patient discharged. Outpatient Attender: ILEANA ARMAS MDReferrer: AMY BENNETT, 10/23/2020 12:15:55 PM EDT [facility] Outpatient Attender: TIGIST LOPEZ NPReferrer: AMY BENNETT, 09/26/2020 10:52:53 PM EDT [facility] Immunizations Vaccine Date Status Description Data Source(s) COVID-19 VACCINE Pfizer 09/25/2020 12:00:00 AM EDT completed [facility] Vaccine Series Complete: NOThis Data was Submitted to [facility] Via [employer]. Medications Medication Brand Name Start Date Product Form Dose Route Admi nistrative Instructions Pharmacy Instructions Status Indications Reaction Description Data Source(s) 50 mg 03/15/2021 12:00:00 AM EDT tablet 7 TAKE ONE TABLET BY MOUTH EVERY DAY FOR DEPRESSION TAKE ONE TABLET BY MOUTH EVERY DAY FOR DEPRESSION SOLD : 03/16/2021 [facility] 50 mg 03/15/2021 12:00:00 AM EDT tablet 7 TAKE ONE TABLET BY MOUTH AT BEDTIME NEEDED FOR INSOMNIA TAKE ONE TABLET BY MOUTH AT BEDTIME N EEDED FOR INSOMNIA SOLD: 03/16/2021 [facility] 50 mg 03/15/2021 12:00:00 AM EDT tablet 7 TAKE ONE TABLET BY MOUTH EVERY DAY FOR DEPRESSION TAKE ONE TABLET BY MOUTH EVERY DAY FOR DEPRESSION SOLD : 03/24/2021 [facility] 50 mg 03/15/2021 12:00:00 AM EDT tablet 7 TAKE ONE TABLET BY MOUTH AT BEDTIME NEEDED FOR INSOMNIA TAKE ONE TABLET BY MOUTH AT BEDTIME N EEDED FOR INSOMNIA SOLD: 03/24/2021 [facility] 25 mg 11/16/2020 12:00:00 AM EDT capsule 21 TAKE ONE CAPSULE BY MOUTH THREE TIMES A DAY FOR ARTHRITIS WITH FOOD TAKE ONE CAPSULE BY MOUTH THREE TIMES A DAY FOR ARTHRITIS WITH FOOD SOLD: 11/16/2020 [facility] 800-160 mg 11/16/2020 12:00:00 AM EDT tablet 20 TAKE ONE TABLET BY MOUTH EVERY 12 HOURS TAKE ONE TABLET BY MOUTH EVERY 12 HOURS SOLD: 11/16/2020 [facility] Insurance Providers Payer name Policy type / Coverage type Policy ID Covered democrat ID Covered democrat's relationship to delaney Policy Delaney Plan Information [facility] [id number] SP [id number] [facility] F [id number] SELF [id number] [facility] [id number] 18 [id number] [facility] [id number] SP [id number] [facility] [id number] 18 [id number] Problems, Conditions, and Diagnoses Code Display Name Description Problem Type Effective Dates Data Source(s) E44649 Nicotine dependence, other tobacco produ ct, uncomplicated Nicotine dependence, other tobacco product, uncomplicated Diagnosis 11/16 01:47:00 PM EDT [facility] [id number] Cellulitis of left upper limb Cellulitis of left upper limb Diagnosis 11/16/2020 01:47:00 PM EDT [facility] [id number] Other infective bursitis, left elbow Oth er infective bursitis, left elbow Diagnosis 11/16/2020 01:47:00 PM EDT [facility] [id number] Pain in left elbow Pain in left elbow Diagnosis 01:47:00 PM EDT [facility] Surgeries/Procedures No Information Results ID Date Data Source [id number] 03/13/2021 09:19:00 PM EDT [facility] Name Value Range Interpretation Code Description Data Malathi rce(s) Supporting Document(s) SARS coronavirus 2 RNA [Presence] in Res piratory specimen by MIMA with probe detection NEGATIVE [facility] This lab was ordered by [facility] a nd reported by [facility]. ID Date Data Source [id number] 11/17/2020 09:39:00 AM EDT [facility] [address] [place] [address] PHONE: [phone] FAX: [phone] Name .................. : DENA Alfaro Acct Number.................. : [id number] ROOM. ................. : TR-1A MR Number ................... : [id number] Stay type ............. : E/R Discharge Date......... ... : Admit Date ......... : 11/16/20 Admit Phys .................... : JORGE SCHNEIDER Date of ....... : 1995 Family Phys ................... : NON STAFF Phone .................. : [phone] Age ................................ : 25 Film# .................. .:[id number] Sex ................................. : M Unsigned transcriptions are preliminary reports and do not represent a medical or legal document ELBOW AP & LATERAL LT [id number] COMPLETE:11/16/20 14:10 [id number] Reason(s): Cellulitis LEFT ELBOW X-RAY: FINDINGS: There is normal alignment and position of the bones of the left elbow. No evidence for joint effusion is noted. No acute abnormalities. IMPRESSION: Negative left elbow. Electronically Reviewed and Signed By Migue Sanchez MD , 11/17/20 09:39, KGG Transcribe Initials: VIBHA , Transcribe Date: 11/16/20 16:54, Dictation Date: Copy for: EMERGENCY DEPT via modem Copy for: 710 MED REC DISCHARGED P age 1 of 1 Name Value Range Interpretation Code Description Data Malathi rce(s) Supporting Document(s) ID Date Data Source [id number] 11/16/2020 01:47:00 PM EDT [facility] 1 OrderSheet [facility] Emergency Department [address] [place] [address] Phone #: ext- [phone] 11/16/2020 13:45 Patient: DENA, KYLIE W Sex: M : 1995 Age: 25yWEIGHT:93.4 kgALLERGIES: No Known Drug AllergyCHIEF COMPLAINT: pain, swellingDIAGNOSIS: Bursitis, Cellulitis of skinLAB ORDERSOrder Description Priority Entered Acknowledged InitialedCBC w Diff STAT 14:11/16/2020 14:12 Perry Tucker RN, M.D.;CMP STAT 14:11/16/2020 14:12 Perry Tucker RN, M.D.;Sed. Rate STAT 14:11/16/2020 14:12 Perry Tucker RN, M.D.;CRP STAT 14:11/16/2020 14:12 Perry Tucker RN, M.D.;Uric Acid STAT 14:11/16/2020 14:12 Perry Tucker RN, M.D.;Lactic Acid STAT 14:11/16/2020 14:12 Perry Tucker RN, M.D.;Blood Culture STAT 14:11/16/2020 14:12 Loxfde57m X2 (Perry Cruz RN14:11/16/2020) Kathy;Blood Culture STAT 14:11/16/2020 14:42 Arxzti16t X2 (Perry Cruz RN14:11/16/2020) Kathy;DIAGNOSTIC STUDY ORDERSOrder Description Priority Entered Acknowledged InitialedElbow AP And LAT STAT 14:11/16/2020 14:12 DorisLeft (Oxygen?(No)) Perry Ptael RN, M.D.; Reason for Study: Cellulitis, Elbow Pain, Pain 2 OrderSheet [facility] Emergency Department [address] [place] [address] Phone #: ext- [phone] 11/16/2020 13:45 [id number] Sex[facility] M : 1995 Age: 25yMEDICATION/IV/DRIP/FLUID ORDERSOrder Description Priority Entered Acknowledged InitialedNS IV 1000 mL 14:10 11/16/2020 14:49 DorisBolus: : Bolus 1000 Perry Patel RNmL (X1) M.DApolinar;Toradol 15 mg IVP 14:10 11/16/2020 14:40 DorisX1 dose: 15 mg Perry Patel RN(NOW x1) MApolinarDApolinar;cefTRIAXone 14:10 11/16/2020 Cancelled: Physician Order 14:11 Bimalrin,(1gm/50ml) IVPB Perry Patel M.D.1000 mg with M.D.;Dextrose 50 mlspike bag (D5W)Vancomycin IVPB 14:12 11/16/2020 14:42 Delia(15 mg/kg) 1300 mg Perry Patel RNwith Dextrose M.D.;Intravenous 250 mL(D5W)cefTRIAXone 16:21 11/16/2020 16:29 Delia(1gm/50ml) IVPB Perry Patel [id number] mg with M.D.;Dextrose 50 mlspike bag (D5W)GENERAL ORDERSOrder Description Priority Entered Acknowledged InitialedSling - arm 16:21 11/16/2020 16:36 Perry Tucker RN, M.D.;[Electronically signed by Delia Nelson RN (17:12 11/16/2020)][Electronically signed by Perry Patel M.D. (17:14 11/16/2020)][Electronically locked by Delia Nelson RN (17:12 11/16/2020)] Name Value Range Interpretation Code Description Data Malathi rce(s) Supporting Document(s) ID Date Data Source [id number] 11/16/2020 01:47:00 PM EDT [facility] 1 Medication Reconciliation Report [facility] Emergency Department [address] [place] [address] Phone #: [phone]- [phone] 11/16/2020 13:45 Patient: KYLIE VALDERRAMA Sex: M : 1995 Age: 25yWeight: 93.4 kgHeight/Length: 72 in.BMI: 28.0ALLERGIES: No Known Drug AllergyThe patient's Home Medications are listed below:CONTINUE TAKING THE FOLLOWING MEDICATIONS: Bactrim DS Oral 1 tablet, 2x a day Indomethacin Oral 25 mg, 3x a day Naproxen Oral 500 mg, prnThe source(s) of the original Home Medication information:patientThe following Medications were given to the patient in the Emergency Department:Toradol [IVP] IVP 15 mg, administered: 14:35 11/16/2020Vancomycin [IVPB] IVPB bolus 0, then 1300 mg 167 mL/hr, administered: 14:37 11/16/2020IV NS w/ bolus IV Fluids bolus 1000 mL over 1 hour(s), then 1000 mL/hr, administered: 14:47 11/16/2020EFTRIAXONE (1GM/50ML) [IVPB] IVPB bolus 0, then 1 gm 100 mL/hr, administered: 16:27 11/16/2020The following Medications were prescribed to the patient:cephalexin 500 mg tablet Take 1 tablet four times a day for 7 days -- Dispense 28 tablet. Refills: 0.Substitution permitted.Pharmacy - [facility] - [address] [facility] ; [place], [place] [id number]. . -- Perry Patel M.D. Name Value Range Interpretation Code Description Data Malathi rce(s) Supporting Document(s) ID Date Data Source [id number] 11/16/2020 01:47:00 PM EDT [facility] 1 Medication Administration Record [facility] Emergency Department [address] [place] [address] Phone #: [phone] ext- [phone] 11/16/2020 13:45 Patient: KYLIE VALDERRAMA Sex: M : 1995 Age: 25yWeight: 93.4 kgHeight/Length: 72 inBMI: 28ALLERGIES: No Known Drug Allergy Date/Time Medication Administered Medication OrderedStart IV NS W/ BOLUS NS IV 1000 mL Bolus: : Bolus 803375:47 11/16/2020 Dose: IV Fluids mL (X1)Delia Nelson RN Rate: 1000 mL/hr over 1 hour(s)---- Bolus: 1000 mL over 1 hour(s)Stop Dispensed: 1000 mL bag15:47 11/16/2020 Site: #1 right Teetee Nelson RNGiven TORADOL [IVP] (KETOROLAC Toradol 15 mg IVP X1 dose: 15 mg14:35 11/16/2020 TROMETHAMINE) (NOW x1)Delia Nelson RN Dose: 15 mg IVP Site: #1 right ACStart VANCOMYCIN [IVPB] Vancomycin IVPB (15 mg/kg) 939891:37 11/16/2020 Dose: 1300 mg IVPB mg with Dextrose Intravenous 250Doperla Nelson RN Rate: 167 mL/hr over 1.5 hour(s) mL (D5W)---- Dispensed: 250 mL bagStop Site: #1 right AC16:10 1DHO Micheletart CEFTRIAXONE (1GM/50ML) [IVPB] cefTRIAXone (1gm/50ml) IVPB16:27 11/16/2020 Dose: 1 gm IVPB 1000 mg with Dextrose 50 ml Monica Nelson RN Rate: 100 mL/hr over 30 minute(s) bag (D5W)---- Dispensed: 50 mL bagStop Site: #1 right AC16:57 1Djamarcus Nelson RN Name Value Range Interpretation Code Description Data Malathi rce(s) Supporting Document(s) ID Date Data Source [id number] 11/16/2020 01:47:00 PM EDT [facility] 1 General Instructions [facility] Emergency Department [address] [place], [place] [address] Phone #: ext- [phone] 11/16/2020 13:45 Patient: KYLIE VALDERRAMA Sex: M : 1995 Age: 25yCellulitis of the left elbow.Left olecranon bursitis with in fection.INSTRUCTIONSApply ice for 30 minutes four times a day for three days followed by moist heat 30 minutes four times a dayfor five days. Don't apply ice directly to skin, don't use while asleep and don't use high setting on heatingpad. Wear sling until released. No driving or operating machinery until released. Limit lifting untilreleased. No strenuous activity until released. Return to work when released by doctor.(FOLLOW UP WITH [facility]TH[facility]EDICS [facility] TOMORROW MORNING).Warnings: Further evaluation is necessary ([facility]). It is very important to follow upwith a healthcare provider.GENERAL WARNINGS: Return or contact your physician immediately if your condition worsens orchanges unexpectedly, if not improving as expected, or if other problems arise. Specifically return if pain,vomiting, bleeding, breathing difficulty or fever greater than 102 degrees F and not controlled byacetaminophen or ibuprofen.Your Current Medications: Your current home medications have been reviewed.CONTINUE TAKING THE FOLLOWING MEDICATIONS:Bactrim DS Oral : 1 tablet 2x a day.Indomethacin Oral : 25 mg 3x a day.Naproxen Oral : 500 mg, prn.Prescription Medications:cephalexin 500 mg tablet Take 1 tablet four times a day for 7 days -- Dispense 28 tablet. Refills: 0.Substitution permitted.Pharmacy - [facility] - [address] [facility] ; [place], [place] [id number]. .Follow-up:Return to the emergency department as needed. Follow up with an orthopedic surgeon tomorrow even ifwell. Call for an appointment. Reason for referral: evaluation and treatment. Summary of care provided topatient via paper.Understanding of the discharge instructions verbalized by patient. Expected course of injury, dischargeinstructions, activity level, diet, prescriptions x1, follow-up leodan ointment and risks and benefits of treatmentreviewed with patient and understanding verbalized. Agrees to plan of care. 2 General Instructions [facility] Emergency Department [address] [place] [address] Phone #: ext- [phone] 11/16/2020 13:45 Patient: KYLIE VALDERRAMA Sex: M : 1995 Age: 25y ADDITIONAL INFORMATIONCellulitisCellulitis is an infection of the deep layers of skin. A break in the skin, such as a cut or scra tch, can letbacteria under the skin. If the bacteria get to deep layers of the skin, it can be serious. If not treated,cellulitis can get into the bloodstream and lymph nodes. The infection can then spread throughout thebody. This causes serious illness.Cellulitis causes the affected skin to become red, swollen, warm, and sore. The reddened areas havea visible border. An open sore may leak fluid (pus). You may have a fever, chills, and pain.Cellulitis is treated with antibiotics taken for 7 to 10 days. An open sore may be cleaned and coveredwith cool wet gauze. Symptoms should get better 1 to 2 days after treatment is started. Make sure totake all the antibiotics for the full number of days until they are gone. Keep taking the medicine even ifyour symptoms go away.Home careFollow these tips: Limit the use of the part of your body with cellulitis. If the infection is on your leg, keep your leg raised while sitting. This helps reduce swelling. Take all of the antibiotic medicine exactly as directed until it is gone. Don't miss any doses, especially during the first 7 days. Don't stop taking the medicine when your symptoms get better. Keep the affected area clean and dry. Wash your hands with soap and clean, running water before and after touching your skin. Anyone else who touches your skin should also wash his or her hands. Don't share towels.Follow- up careFollow up with your healthcare provider, or as advised. If your infection doesn't go away on the firstantibiotic, your healthcare provider will prescribe a different one.When to seek medical adviceCall your healthcare provider right away if any of these occur: Red areas that spread 3 General Instructions [facility] Emergency Department [address] [place] [address] Phone #: ext- [phone] 11/16/2020 13:45 Patient: KYLIE VALDERRAMA Sex: M : 1995 Age: 25y Swelling or pain that gets worse Fluid leaking from the skin (pus) Fever higher of 100.4 F (38.0 C) or higher after 2 days on antibiotics [id number] [employer]. [address] [place] [address], [place] [address]. All rights reserved. This information is not intended as asubstitute for professional medical care. Always follow your healthcare professional's instructions.BursitisYou have bursitis. This is an inflammation of the bursa. These are small, fluid-filled sacs that surroundthe larger joints of the body. The bursa help the muscles and tendons move smoothly over the joints.Bursitis often happens in the shoulder. But it can also affect the elbows, hips, pelvis, knees, toes, andheels. Bursitis can be caused by injury, overuse of the joint, or infection of the bursa. Symptomsinclude pain and tenderness over a joint. Symptoms get worse with movement.Bursitis is treated with an anti-inflammatory medicine and by resting the joint. More severe casesrequire injection of medicine directly into the bursa. In the case of infection, surgery and antibioticsmay be needed.Home care Rest the painful joint and protect it from movement. This will allow the inflammation to heal faster. Apply an ice pack over the injured area for no more than 15 to 20 minutes. Do this every 3 to 6 hours for the first 24 to 48 hours. Keep using ice packs 3 to 4 times a day until the pain and swelling improves. 4 General Instructions [facility] Emergency Department [address] [place] [address] Phone #: ext- [phone] 11/16/2020 13:45 Patient: KYLIE VALDERRAMA Sex: M : 1995 Age: 25y To make an ice pack, put ice cubes in a sealed plastic bag. Wrap the bag in a clean, thin towel or cloth. Never put ice or an ice pack directly on the skin. As the ice melts, be careful to not to get the wrap or splint wet. You may take tabt-dlw-siaeaot pain medicine to treat pain and inflammation, unless another medicine was prescribed. Anti- inflammatory pain medicines may be more effective. Talk with your provider before using these medicines if you have chronic liver or kidney disease, or ever had a stomach ulcer or gastrointestinal bleeding. As your sym ptoms improve, slowly begin to move the joint. Don't overuse the joint. This may cause the symptoms to flare up again.When to seek medical adviceCall your healthcare provider right away if any of these occur: Redness or warmth over the painful area Increasing pain or swelling at the joint Fever of 100.4F (38C) or above lasting for 24 to 48 hours, or as advised Chills [id number] [employer]. [address] [place] [address], [place] [address]. All rights reserved. This information is not intended as asubstitute for professional medical care. Always follow your healthcare professional's instructions.SlingA sling is designed to support your arm in a position of rest. It is used for injuries of the hand, forearm,upper arm, and shoulder.A shoulder that is immobilized too long can become stiff and lose range of motion. Your elbow canalso get stiff. Follow up with your healthcare provider as advised and don't use the sling longer than 5 General Instructions [facility] Emergency Department [address] [place] [address] Phone #: ext- [phone] 11/16/2020 13:45 Patient: KYLIE VALDERRAMA Sex: M : 1995 Age: 25ydirected.Home use: Leave the sling in place as long as directed by your healthcare provider. Unless told otherwise, you may remove it when bathing, dressing, and when you go to sleep. If approved by your healthcare provider, you can do gentle "pendulum exercises." To do these: o Remove your sling. o Stand or sit with your arm vertical and close to your side. o Relax your shoulder muscles and gently swing the arm forward and back, side to side, and in small circles. o Do this for about 5 minutes once or twice a day.There should be only minimal pain with this exercise. If you have more than minimal discomfort, stopthe exercise and call your healthcare provider. The sling is adjustable. If it becomes loose, adjust it so that your forearm is horizontal (level with the ground). Your hand should be level with the elbow. [employer]. [address] [place] [address], [place] [address]. All rights reserved. This information is not intended as asubstitute for professional medical care. Always follow your healthcare professional's instructions. You have been given the following additional information: Cellulitis Bursitis Sling No driving or operating machinery until released. Limit lifting until released. No strenuous activity until released. Return to work when released by doctor.(Electronically signed by Perry Ptael M.D. 11/16/2020 17:14) Name Value Range Interpretation Code Description Data Malathi rce(s) Supporting Document(s) ID Date Data Source [id number] 11/16/2020 01:47:00 PM EDT [facility] 1 Clinical Report - Nurses [facility] Emergency Department [address] [place] [address] Phone #: ext- [phone] 11/16/2020 13:45 Patient: KYLIE VALDERRAMA Sex: M : 1995 Age: 25yTRIAGEArrived by private vehicle. Historian: patient. Accompanied by friend. ( Pt seen at [facility] yesterday and dxwith bursitis r/t bacterial infection. pt given bactrim and had dose last night and this am and indomethacin.pt reports arm more swollen today and a low grade fever of 99.5. pt 98.2 orally upon arrival to [facility] ED.).Triage time: 13:48 11/16/2020. Acuity: LEVEL 4.Chief Complaint: LEFT UPPER EXTREMITY PAIN, SWELLING and REDNESS.Alert.This started yesterday. Onset. (0700). ( pt had xray yesterday and it was negative and had blood workdone). He has had swelling and redness.Treatment CREDIT INTERN:(abx). --13:54 11/16/20 Bette Herman R.N.13:48 11/16/20. BP: 135/68. HR: 95. RR: 16. O2 saturation: 100%. Temp: 98.2 F. Pain level now 10/26.--13:54 11/16/20 Bette Herman R.N.Weight: 93.4 kg. Height/Length: 72 inches. BMI: 28. --13:47 11/16/20 Bette Herman R.N.MedicationsIndomethacin Oral 25 mg, 3x a day. --13:51 11/16/20 Bette Herman R.N. Bactrim DS Oral 1 tablet, 2x a day. --13:51 11/16/20 Bette Herman R.N. Naproxen Oral 500 mg, as needed. --13:52 11/16/20 Bette Herman R.N.AllergiesNo Known Drug Allergy. --13:51 11/16/20 Bette Herman R.N.PROBLEMS:Tonsillitis. --13:52 11/16/20 Bette Herman R.N.Medication/allergy information source: the patient. --13:54 11/16/20 Bette Herman R.N.ADDITIONAL SURGERIES:Left ankle fusion.Right wrist .Tonsillectomy. --13:52 11/16/20 Bette Herman R.N.HistoryPAST MEDICAL HX: Tetanus status: up-to-date. Immunizations: up-to-date. 2 Clinical Report - Nurses [facility] Emergency Department [address] [place] [address] Phone #: ext- [phone] 11/16/2020 13:45 Patient: KYLIE VALDERRAMA Sex: M : 1995 Age: 25y SOCIAL HX: Smoker- current status unknown (vape). No alcohol use or drug use. He was offered HIV testing but declined and hepatitis C testing but declined. He has not traveled outside the [place] Infectious disease exposure: No infectious disease exposure. SELF HARM ASSESSMENT: Self harm assessment was performed. The patient answered "no" to the question(s) "Have you recently felt down, depressed, or hopeless?", "Do you have thoughts of harming or killing yourself?", "Do you have a plan for harming or killing yourself?", "Have you recently had thoughts about harming or killing others?", "Do you have any dangerous items in your possession?", "Have you noticed less interest or pleasure in doing things?", "Are you here because you tried to hurt yourself?" and "Have you ever tried to hurt yourself before today?". ABUSE ASSESSMENT: Abuse assessment. No suspicion of abuse. No report of abuse. --13:54 11/16/20 Bette Herman R.N. FALL RISK ASSESSMENT: Fall risk assessment completed. No risk factors identified. --14:01 11/16/20 Delia Nelson RN.PHYSICAL [id number]:[id number] 11/16/20. Ambulatory to room.GENERAL / NEURO / PSYCH: Oriented X 4. Alert. Appears in no acute distress.EXTREMITIES: Erythema with tenderness, warmth and swelling to left elbow. Neuro-vascular statusintact to the extremity. Left elbow: tenderness, swelling and erythema of the area of the lateral elbow.SKIN: Skin intact. Skin is warm and dry. --14:00 11/16/20 Delia Nelson RN.NURSING PROGRESS NOTESCold pack applied. Extremity elevated. Patient gowned. Reassurance given. Call light placed in reach.Side rails up x 1. Bed placed in lowest position. Brakes of bed on. Patient ready for evaluation.--13:55 11/16/20 Bette Herman R.N. Patient transported to radiology by wheelchair with mask and limited radiology technician. --14:29 11/16/20 Martha hogshead weigher, Max, ER Tech1 Correction --14:30 11/16/20 Martha hogshead weigher Max, ER Tech1 14:27 11/16/20. Patient transported to radiology by wheelchair with mask and limited radiology technician. --14:30 11/16/20 Martha hogshead weigher, Max, ER Tech1 Patient returned from radiology by wheelchair with mask and limited radiology technician. --14:30 11/16/20 Martha hogshead weigher Max, ER Tech1 14:35 11/16/2020 Site #1 started via IV in the right antecubital space with an 20g angiocath, with aseptic technique and good blood return; one attempt. Saline lock flushed with 10 mL saline. -- 14:40 11/16/20 Delia Nelson RN 14:35 11/16/2020 Toradol (Ketorolac Tromethamine) IVP 15 mg given over 1 minute(s) via site #1. Allergies verified and confirmed 5 rights. IV patency established. IV site checked: no pain, redness, or 3 Clinical Report - Nurses [facility] Emergency Department [address] [place] [address] Phone #: ext- [phone] 11/16/2020 13:45 Patient: KYLIE VALDERRAMA Sex: M : 1995 Age: 25yswelling. IV flushed thoroughly pre- and post-medication administration. IVP given by RN. Informationreviewed with patient including reason for taking this medication, signs of allergic reaction and precautions.Verbalizes understanding. --14:40 11/16/20 Delia Nelson RN14:37 11/16/2020 Started 1300 mg of Vancomycin IVPB in bag #1 250 mL; at 167 mL/hr over 1.5 hour(s)via site #1. via IV pump. Allergies verified and confirmed 5 rights. IV patency established. IV site checked:no pain, redness, or swelling. IV flushed thoroughly pre- and post- medication administration. Informationreviewed with patient including reason for taking this medication, signs of allergic reaction and precautions.Verbalizes understanding. Completed per protocol. --14:42 11/16/20 Delia Nelson RN14:47 11/16/2020 Started bag #1 1000 mL IV Fluids IV NS w/ bolus; bolus of 1000 mL over 1 hour(s) thenat 1000 mL/hr over 1 hour(s) via site #1 via IV pump. Allergies verified and confirmed 5 rights. IV patencyestablished. IV site checked: no pain, redness, or swelling. IV flushed thoroughly pre- and post- medicationadministration. Information reviewed with patient including reason for taking this medication, signs ofallergic reaction and precautions. Verbalizes understanding. Completed per protocol. --14:49 11/16/20Delia Nelson RN14:50 11/16/2020 Toradol IVP Response: no adverse reaction pain is improving. Symptoms have improvedthe patient feels better. --16:10 11/16/20 Delia Nelson RN15:11 11/16/20. Reassessment after medication administered. No adverse reaction. He reports nocomplaints and he is calm and resting quietly. --15:12 11/16/20 Delia Nelson RN15:47 11/16/2020 IV Fluids IV NS w/ bolus via IV site #1 Discontinued: bag #1 infused. Total amountinfused: 1000 mL. IV patency established. IV site checked: no pain, redness, or swelling. IV flushedthoroughly. --16:10 11/16/20 Delia Nelson RN15:50 11/16/20. The patient reports no complaints and he is sleeping.RESPIRATORY: No respiratory distress. --16:30 11/16/20 Delia Nelson RN16:10 11/16/20. ( IV Vancomycin completed, patient awake, complains of periorbital swelling left eye.Patient was sleeping with fabric face mask over eyes, with contacts in. Ice pack given, Dr Patel notified.).--16:33 11/16/20 Delia Nelson RN16:10 11/16/2020 Vancomycin IVPB via IV site #1 Discontinued: completed. Total amount infused: 250 mL.IV patency established. IV site checked: no pain, redness, or swelling. IV flushed thoroughly. --16:105 Delia Nelson RN16:15 11/16/20. Orthopedic surgery consulted ([facility] investor relations director). --16:35 11/16/20 FRANKY Talavera16:27 11/16/2020 Started 1 gm of CEFTRIAXONE (1GM/50ML) IVPB in bag #1 50 mL; at 100 mL/hr over30 minute(s) via site #1. via IV pump. Allergies verified and confirmed 5 rights. IV patency established. IVsite checked: no pain, redness, or swelling. IV flushed thoroughly pre- and post-medication administration. 4 Clinical Report - Nurses [facility] Emergency Department [address] [place] [address] Phone #: ext- [phone] 11/16/2020 13:45 Patient: KYLIE VALDERRAMA Sex: M : 1995 Age: 25y Information reviewed with patient including reason for taking this medication, signs of allergic reaction and precautions. Verbalizes understanding. --16:29 11/16/20 Delia Nelson RN 16:57 11/16/2020 CEFTRIAXONE (1GM/50ML) IVPB via IV site #1 Discontinued: completed. Total amount infused: 50 mL. IV patency established. IV site checked: no pain, redness, or swelling. IV flushed thoroughly. --17:09 11/16/20 Delia Nelson RN 16:59 11/16/2020 Site #1 removed upon discharge. Catheter intact. Manual pressure and bandage applied. --17:09 11/16/20 Delai Nelson RN 17:00 11/16/20. Sling applied to left arm by nurse; distal pulses intact, sensation intact and motor function within normal limits. --17:10 11/16/20 Delia Nelson RN.DISPOSITION / DISCHARGE 17:11/16/20. Condition at departure: improved and stable. No learning barriers present. Discharge instructions provided and reviewed with the patient. Reviewed medication(s) side effects, precautions, dosing and course information. Prescription(s) sent electronically to pharmacy ([facility]). Patient verbalized understanding. Written instructions provided in Portuguese. The patient was discharged home and accompanied by reconditioner. He left ambulatory and via private vehicle. Reed Dipper driving. --17:11 11/16/20 Delia Nelson RN 17:00 11/16/20. BP: 126/89. MAP: 101. HR: 61. RR: 14. O2 saturation: 99%. Temp: 98.8 F. Pain level now: 0/10. --17:11 11/16/20 Delia Nelson RN.Locked/Released at 11/16/2020 17:12 by Delia Nelson RN Name Value Range Interpretation Code Description Data Malathi rce(s) Supporting Document(s) ID Date Data Source [id number] 0001 11/16/2020 01:47:00 PM EDT [facility] 1 Clinical Report - Physicians/Mid Levels [facility] Emergency Department [address] [place] [address] Phone #: ext- [phone] 11/16/2020 13:45 Patient: KYLIE VALDERRAMA Sex: M : 1995 Age: 25y Time Seen: 13:46 11/16/2020; initial patient contact. Arrived- By private vehicle. Historian- patient. Disposition decision: 16:26 11/16/2020.HISTORY OF PRESENT ILLNESS Chief Complaint: UPPER EXTREMITY PAIN and SWELLING. Severity is described as being moderate in degree. The quality is noted to be dull, aching and "pain". No radiation. This started yesterday and is still present and worsening. It was gradual in onset and has been constant. Symptoms located in the area of the left elbow. No chest pain, difficulty breathing, sensory loss, motor loss or repetitive hand use at work. He has had redness and swelling. (pt seen at [facility] ER last night for this problem, was dxed w left elbow bursitis, workup was done, WBC 78100, no shift, ESR, CRP nml, pt was given Ceftriaxone iv and Septra PO, prescribed Septra and Indocin; no sling, elbow worse today). Patient denies an injury. Similar symptoms previously. None. Recent medical care: The patient was seen recently at another facility in the emergency department. ( [facility] ER last evening, see ER records).REVIEW OF SYSTEMSNo fever, chills, eye discomfort, headache or depression. No sore throat, cough, enlarged lymph nodes,neck pain or abdominal pain. No nausea, vomiting, diarrhea, black stools or difficulty with urination. Nourinary frequency, hematuria or bloody stools. The patient has had a moderate, painful skin rashconsisting of "redness" located on the left elbow. no STI, no urethral d/c. All other systems reviewed andare negative.PAST HISTORYSee nurses notes. Problems: Tonsillitis. Additional Surgeries: Left ankle fusion. Right wrist . Tonsillectomy. Medications: Naproxen Oral 500 mg, as needed. Bactrim DS Oral 1 tablet, 2x a day. 2 Clinical Report - Physicians/Mid Levels [facility] Emergency Department [address] [place] [address] Phone #: ext- [phone] 11/16/2020 13:45 Patient: KYLIE VALDERRAMA Sex: M : 1995 Age: 25y Indomethacin Oral 25 mg, 3x a day. 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 No alcohol use or drug use.ADDITIONAL NOTESThe nursing notes have been reviewed with agreement regarding the chief complaint, HPI, ROS, PMH andpatient medications and allergies.PHYSICAL EXAMVital Signs: 11/16/2020 13:48 BP: 135/68. MAP: 90. HR: 95. RR: 16. O2 saturation: 100%. Temp: 98.2 F.Have been reviewed. Heart rate normal. Temperature normal.Appearance: Alert. Oriented X3. No acute distress.Eyes: Pupils equal, round and reactive to light. Eyes normal inspection.ENT: Nose normal. Pharynx normal.Neck: Normal inspection. Neck supple.CVS: Normal heart rate and rhythm. Heart sounds normal.Respiratory: No respiratory distress. Painless inspiration. Breath sounds normal.Abdomen: Soft and nontender. No organomegaly.Back: Normal inspection. No tenderness. ROM normal.Skin: Skin intact. Skin warm and dry. Normal skin turgor.Extremities: Left elbow: severe erythema and moderate tenderness and swelling located in the area of theolecranon. Neurovascular intact distally. (olecranon bursa swollen, painful w surrounding cellulitis). No jointeffusion or limitation in ROM.Neuro: Oriented X 3. No motor deficit. No sensory deficit.LABS, X-RAYS, AND EKGLt Elbow X-ray: No fracture. No bony lesion. Views: 2 view elbow series. Technique: good. TheX-rays were interpreted by the radiologist. Interpretation time: 15:09 11/16/2020.Laboratory Tests: Laboratory tests have been ordered, with results reviewed and considered in themedical decision making process. CBC w Diff: (OXANA: 11/16/2020 14:26) ( MsgRcvd 11/16/2020 15:47) Final results Test Result Flag Units (Reference) CBC W/AUTOMATED DIFF COMPLETE BLOOD COUNT WBC 17.3 H 10/uL (4.2 - 11.0) RBC 4.82 10/uL (4.50 - 6.30) HEMOGLOBIN 15.1 g/dL (14.0 - 16.0) HEMATOCRIT 45.0 % (41.0 - 51.0) MCV 93.4 fL (80.0 - 94.0) MCH 31.3 pg (27.0 - 34.0) MCHC 33.6 g/dL (31.0 - 36.0) RDW 12.9 % (11.5 - 14.8) PLATELETS 196 10/uL (150 - 450) MPV 10.3 fL (7.4 - 10.4) 3 Clinical Report - Physicians/Mid Levels [facility] Emergency Department [address] [place] [address] Phone #: ext- [phone] 11/16/2020 13:45 Patient: KYLIE VALDERRAMA Sex: M : 1995 Age: 25y NEUT 73.8 % (37.0 - 80.0) LYMPH 14.7 L % (25.0 - 40.0) MONO 9.7 H % (3.0 - 8.0) EOS 1.0 % (0.0 - 7.0) BASO 0.3 % (0.0 - 2.0) %IG 0.5 H % (0.0 - 0.0) %NRBC 0.0 % (0.0 - 0.0) #NEUT 12.77 H 10/uL (2.00 - 6.90) #LYMPH 2.54 10/uL (0.60 - 3.40) #MONO 1.68 H 10/uL (0.00 - 0.90) #EOS 0.17 10/uL (0.00 - 0.70) #BASO 0.05 10/uL (0.00 - 0.20) #IG 0.08 10/uL (0.00 - 0.10) #NRBC 0.00 10/uL (0.00 - 0.00) MANUAL DIFF SEE BELOW SEGS 80 % (37 - 80) %LYMPH 12 L % (25 - 40) %MONO 7 % (3 - 8) %EOS 1 % (0 - 7) RBC MORPH NOT INDICATEDCMP: (OXANA: 11/16/2020 14:26) ( MsgRcvd 11/16/2020 15:24) Final results Test Result Flag Units (Reference) COMPREHENSIVE METABOLIC PANEL COMPREHENSIVE METABOLIC PANEL SODIUM 138 mEq/L (134 - 153) POTASSIUM 3.9 mEq/L (3.6 - 5.0) CHLORIDE 103 mEq/L (98 - 107) CO2 25 MEQ/L (22 - 30) GLUCOSE 96 MG/DL (70 - 99) BUN 16 MG/DL (7 - 21) CREATININE 0.9 MG/DL (0.7 - 1.5) BUN/CREAT 18 (8 - 27) TOTAL PROTEIN 6.5 G/DL (6.3 - 8.2) ALBUMIN 4.1 G/DL (3.9 - 5.0) GLOBULIN 2.4 GM/DL (2.4 - 3.2) A/G RATIO 1.7 (0.8 - 2.0) CALCIUM 9.3 MG/DL (8.4 - 10.2) TOTAL BILI <0.7 MG/DL (0.2 - 1.3) ALKALINE PHOS 67 U/L (38 - 126) SGOT/AST 40 U/L (5 - 40) SGPT/ALT 33 U/L (7 - 56) ANION GAP 10.0 mmol/L (8.0 - 16.0) AGE 25 yrs NON-AA GFR >60 mL/min AFR AMER GFR >60 mL/min Male GFR Interprentation 20-49 yrs >60 mL/min [id number] yrs >56 mL/min Normal 60-69 yrs >49 mL/min Normal 70-79yrs>42 mL/min Normal 80 and above >35 mL/min Normal Female GFRInterpretation 20-39 yrs >60 mL/min Normal 40-49 yrs >58 mL/minNormal 50-59 yrs >51 mL/min Normal 60-69 yrs >45 mL/min [id number] yrs >39 mL/min Normal 80 and above >32 mL/min NormalSed. Rate: (OXANA: 11/16/2020 14:26) ( MsgRcvd 11/16/2020 16:01) Final results Test Result Flag Units (Reference) SED RATE 2 mm/hr (0 - 15) SED RATE REENTER 2 4 Clinical Report - Physicians/Mid Levels [facility] Emergency Department [address] [place] [address] Phone #: ext- [phone] 11/16/2020 13:45 Patient: KYLIE VALDERRAMA Sex: M : 1995 Age: 25y CRP: (OXANA: 11/16/2020 14:26) ( MsgRcvd 11/16/2020 15:32) Final results Test Result Flag Units (Reference) CRP-HS 34.42 H MG/L (1.00 - 3.00) CDC/S HS-CRP CUT-OFF: RELATIVE RISK: <1.0 mg/L Low 1.0 - 3.0 mg/L Average >3.0 mg/L High Optimally, the average of HS-CRP results repeated two weeks apart should be used for risk assessment. Uric Acid: (OXANA: 11/16/2020 14:26) ( MsgRcvd 11/16/2020 15:47) Final results Test Result Flag Units (Reference) URIC ACID 3.9 MG/DL (2.5 - 8.5).PROGRESS AND PROCEDURESCourse of Care: 14:30 11/16/20. pt seem to have left elbow bursitis w surrounding cellulitis; givenCeftriaxone IV and Septra PO yesterday at [facility] ER, on since; will do septic joint workup, give ivfluids, toradol iv and vancomycin iv 15:54 11/16/20. WBC 62464 74%N, CRP 34 high today, lactic 0.8 nml, uric acid nml, elbow x-ray nml, ESR 2 nml 16:22 11/16/20. pt is doing markedly better, less red less swollen, feels better, moves elbow normally w/o issues; workup compared to yesterday and WBC improved slightly, CRP up, rest is nml; case discussed w Dr. Guardado, ortho on-call at [facility], who saw pt in their ER last night; Dr. Guardado does not believe it's a septic joint and I agree since it looks like a severe olecranon bursitis/cellulitis and he's moving joint freely; he agrees w sling and addition of Cephalexin to Septra; will also give ceftriaxone before he goes home; pt is and he is [place]; pt understands and agrees w instructions. Patient counseled in person regarding the patient's stable condition, test results, diagnosis and need for follow-up. Patient agrees with plan of care. Disposition: Condition: good and stable. Discharge decision based on the following: patient's condition is stable; patient's condition is improved; patient is ambulatory; patient is active; patient drinking fluids; patient eating; patient's pain is controlled; patient's exam is improved; no seriously abnormal test results; minimally abnormal test results; improving condition on multiple repeat evaluations; social support is good; transportation is available; follow-up is available; clinical impression is consistent with outpatient treatment.CLINICAL IMPRESSION Cellulitis of the left elbow. Left olecranon bursitis with infection. 5 Clinical Report - Physicians/Mid Levels [facility] Emergency Department [address] [place] [address] Phone #: ext- [phone] 11/16/2020 13:45 Patient: KYLIE VALDERRAMA Sex: M : 1995 Age: 25yINSTRUCTIONS Apply ice for 30 minutes four times a day for three days followed by moist heat 30 minutes four times a day for five days. Don't apply ice directly to skin, don't use while asleep and don't use high setting on heating pad. Wear sling until released. No driving or operating machinery until released. Limit lifting until released. No strenuous activity until released. Return to work when released by doctor. (FOLLOW UP WITH OR[facility]ED[facility] [place]OM[place]ING). Warnings: Further evaluation is necessary (ORTHOPEDICS ON BASE). It is very important to follow up with a healthcare provider. GENERAL WARNINGS: Return or contact your physician immediately if your condition worsens or changes unexpectedly, if not improving as expected, or if other problems arise. Specifically return if pain, vomiting, bleeding, breathing difficulty or fever greater than 102 degrees F and not controlled by acetaminophen or ibuprofen. Your Current Medications: Your current home medications have been reviewed. CONTINUE TAKING THE FOLLOWING MEDICATIONS: Bactrim DS Oral : 1 tablet 2x a day. Indomethacin Oral : 25 mg 3x a day. Naproxen Oral : 500 mg, prn. Prescription Medications: cephalexin 500 mg tablet Take 1 tablet four times a day for 7 days -- Dispense 28 tablet. Refills: 0. Substitution permitted. [employer] [id number] [address] [place], [place] [id number]. . Follow-up: Return to the emergency department as needed. Follow up with an orthopedic surgeon tomorrow even if well. Call for an appointment. Reason for referral: evaluation and treatment. Summary of care provided to patient via paper. Understanding of the discharge instructions verbalized by patient. Expected course of injury, discharge instructions, activity level, diet, prescriptions x1, follow-up appointment and risks and benefits of treatment reviewed with patient and understanding verbalized. Agrees to plan of care.(Electronically signed by Perry Patel M.D. 11/16/2020 17:14) 6Clinical Report - Physicians/Mid Levels [facility] Emergency Department [address] [place] [address] Phone #: [phone] 11/16/2020 13:45 Patient: KYLIE VALDERRAMA Sex: M : 1995 Age: 25y Name Value Range Interpretation Code Description Data Malathi rce(s) Supporting Document(s) ID Date Data Source [id number] 11/21/2020 05:01:00 PM EDT [facility] [address] Name Value Range Interpretation Code Description Data Malathi rce(s) Supporting Document(s) Bacteria identified in Blood by Culture [facility] NO GROWTH AFTER 5 DAYS ID Date Data Source [id number] 11/22/2020 04:15:00 PM EDT [facility] Name Value Range Interpretation Code Description Data Malathi rce(s) Supporting Document(s) CULTURE BLOOD [facility] spital _CULTURE BLOOD_ TEST PERFORM ED AT [facility] [address] [place] [address] CLIA# [id number] SEE SCANNED REPORT{ PRELIM ID Date Data Source [id number] 11/16/2020 03:31:00 PM EDT [facility] Name Value Range Interpretation Code Description Data Malathi rce(s) Supporting Document(s) Lactic w Rfx (if elevated) 0.8 mmol/L 0.5-2.0 [facility] ID Date Data Source [id number] 11/21/2020 03:05:00 PM EDT [facility] Name Value Range Interpretation Code Description Data Malathi rce(s) Supporting Document(s) Bacteria identified in Blood by Culture [facility] NO GROWTH AFTER 5 DAYS ID Date Data Source [id number] 11/22/2020 04:15:00 PM EDT [facility] Name Value Range Interpretation Code Description Data Malathi rce(s) Supporting Document(s) CULTURE BLOOD [facility] _CULTURE BLOOD_ TEST PERFORM ED AT [address] [address] CLIA# [id number] SEE SCANNED REPORT{ PRELIM ID Date Data Source [id number] 11/16/2020 05:10:00 PM EDT [facility] Value Range Interpretation Code Description Data Malathi rce(s) Supporting Document(s) LACTIC ACID (LACTATE) [facility] TEST PERFORMED AT [address] [address] CLIA# [id number] SEE SCANNED REPORT ID Date Data Source [id number] 11/16/2020 04:01:00 PM EDT [facility] Value Range Interpretation Code Description Data Malathi rce(s) Supporting Document(s) Erythrocyte sedimentation rate by Westergren method 2 mm/hr 0 - 15 [facility] SED RATE REENTER 2 [facility] ID Date Data Source [id number] 11/16/2020 03:47:00 PM EDT [facility] Name Value Range Interpretation Code Description Data Malathi rce(s) Supporting Document(s) CBC W/AUTOMATED DIFF [facility] COMPLETE BLOOD COUNT Leukocytes [#/volume] in Blood by Automated count 17.3 10^3/uL 4.2 - 11.0 H [facility] Erythrocytes [#/volume] in Blood by Automated count 4.82 10^6/uL 4. 50 - 6.30 [facility] Hemoglobin [Mass/volume] in Blood 15.1 g/dL 14.0 - 16.0 [facility] Hematocrit [Volume Fraction] of Blood by Automated count 45.0 % 4 1.0 - 51.0 [facility] Erythrocyte mean corpuscular volume [Entitic volume] by Auto mated count 93.4 fL 80.0 - 94.0 [facility] Erythrocyte mean corpuscular hemoglobin [Entitic mass] by Automated count 31.3 pg 27.0 - 34.0 [facility] Erythrocyte mean corpuscular hemoglobin concentration [Mass/volume] by Automated count 33.6 g/dL 31.0 - 36.0 [facility] Erythrocyte distribution width [Ratio] by Automated count 12.9 % 11.5 - 14.8 [facility] Platelets [#/volume] in Blood by Automated count 196 10^3/uL 150 - 45 0 [facility] Platelet mean volume [Entitic volume] in Blood by Automated count 10.3 fL 7.4 - 10.4 [facility] Neutrophils/100 leukocytes in Blood by Automated count 73.8 % 37. 0 - 80.0 [facility] Lymphocytes/100 leukocytes in Blood by Manual count 14.7 % 25.0 - 40.0 L [facility] Monocytes/100 leukocytes in Blood by Automated count 9.7 % 3.0 - 8.0 H [facility] Eosinophils/100 leukocytes in Blood by Automated count 1.0 % 0.0 - 7.0 [facility] Basophils/100 leukocytes in Blood by Automated count 0.3 % 0.0 - 2.0 [facility] %IG 0.5 % 0.0 - 0.0 [facility] %NRBC 0.0 % 0.0 - 0.0 [facility] al Neutrophils [#/volume] in Blood by Automated count 12.77 10^3/uL 2. 00 - 6.90 H [facility] Lymphocytes [#/volume] in Blood by Automated count 2.54 10^3/uL 0.60 - 3.40 [facility] Monocytes [#/volume] in Blood by Automated count 1.68 10^3/uL 0.00 - 0.90 H [facility] Eosinophils [#/volume] in Blood by Automated count 0.17 10^3/uL 0.00 - 0.70 [facility] Basophils [#/volume] in Blood by Automated count 0.05 10^3/uL 0.00 - 0.20 [facility] #IG 0.08 10^3/uL 0.00 - 0.10 [facility] #NRBC 0.00 10^3/uL 0.00 - 0.00 [facility]sp[facility] MANUAL DIFF SEE BELOW [facility] ital Segmented neutrophils/100 leukocytes in Blood by Manual count 80 % 37 - 80 [facility] %LYMPH 12 % 25 - [address] [facility] al %MONO 7 % 3 - 8 [facility] %EOS 1 % 0 - 7 [facility] al RBC MORPH NOT INDICATED [facility] spital ID Date Data Source [id number] 11/16/2020 03:47:00 PM EDT [facility] Name Value Range Interpretation Code Description Data Malathi rce(s) Supporting Document(s) Urate [Mass/volume] in Serum or Plasma 3.9 MG/DL 2.5 - 8.5 [facility] ID Date Data Source [id number] 11/16/2020 03:32:00 PM EDT [facility] Name Value Range Interpretation Code Description Data Malathi rce(s) Supporting Document(s) C reactive protein [Mass/volume] in Serum or Plasma by High sensitivity method 34.42 MG/L 1.00 - 3.00 H [facility] CDC/S HS-CRP CUT-OFF: RELATIVE RISK: <1.0 mg/L Low 1.0 - 3.0 mg/L Average >3.0 mg/L High Optimally, the average of HS-CRP results repeated two weeks apart should be used for risk assessment. ID Date Data Source [id number] 11/16/2020 03:24:00 PM EDT [facility] Name Value Range Interpretation Code Description Data Malathi rce(s) Supporting Document(s) COMPREHENSIVE METABOLIC PANEL [facility] COMPREHENSIVE METABOLIC PANEL Sodium [Moles/volume] in Serum or Plasma 138 mEq/L 134 - 153 [facility] Potassium [Moles/volume] in Serum or Plasma 3.9 mEq/L 3.6 - 5.0 [facility] Chloride [Moles/volume] in Serum or Plasma 103 mEq/L 98 - 107 [facility] Carbon dioxide, total [Moles/volume] in Serum or Plasma 25 MEQ/L 22 - 30 [facility] Glucose [Mass/volume] in Serum or Plasma 96 MG/DL 70 - 99 [facility] BUN 16 MG/DL 7 - 21 [facility] al Creatinine [Mass/volume] in Serum or Plasma 0.9 MG/DL 0.7 - 1.5 [facility] BUN/CREAT 18 8 - 27 [facility] Protein [Mass/volume] in Serum or Plasma 6.5 G/DL 6.3 - 8.2 [facility] Albumin [Mass/volume] in Serum or Plasma 4.1 G/DL 3.9 - 5.0 [facility] Globulin [Mass/volume] in Serum by calculation 2.4 GM/DL 2.4 - 3.2 [facility] A/G RATIO 1.7 0.8 - 2.0 [facility] Calcium [Mass/volume] in Serum or Plasma 9.3 MG/DL 8.4 - 10.2 [facility] Bilirubin.total [Mass/volume] in Serum or Plasma <0.7 MG/DL 0.2 - 1.3 [facility] Alkaline phosphatase [Enzymatic activity/volume] in Serum or Plasma 67 U/L 38 - 126 [facility] Aspartate aminotransferase [Enzymatic activity/volume] in Serum or Plasma 40 U/L 5 - 40 [facility] Alanine aminotransferase [Enzymatic activity/volume] in Seru m or Plasma 33 U/L 7 - 56 [facility] Anion gap 3 in Serum or Plasma 10.0 mmol/L 8.0 - 16.0 [facility] AGE [address] [facility] al NON-AA GFR >60 mL/min [facility] ital AFR AMER GFR >60 mL/min [facility] Ho spital Male GFR In terprentation 20-49 yrs >60 mL/min Normal 50-59 yrs >56 mL/min Normal 60-69 yrs >49 mL/min Normal 70-79yrs >42 mL/min Normal 80 and above >35 mL/min Normal Female GFR Interpretation 20-39 yrs >60 mL/min Normal 40-49 yrs >58 mL/min Normal 50-59 yrs >51 mL/min Normal 60-69 yrs >45 mL/min Normal 70-79 yrs >39 mL/min Normal 80 and above >32 mL/min Normal ID Date Data Source [id number] 10/23/2020 12:15:55 PM EDT [facility] PCName: Kylie EarpDOB: 1995Provider: ChandaTen MorisOS: 10/20/2020 Reason For VisitKylie Valderrama is here today for Right wrist. Kylie had his second Covid vaccine on 09/21/20. Kylie Valderrama is an established patient here for follow up. Kylie states his wrist is sore, but is much better since last visit. Surgery DOS: 07/12/19. Surgery Description: Rt wrist proximal row carpectomy with removal of scaphoid, lunate and triquetrum; Rt wrist radial styloidectomy; denervation with posterior interosseous nerve excision. ([facility]). Patient is working at this time at regular duty. PlanHISTORY: August 2020 acute spasm of hand and ulnar sided wrist pain. Therapy has helped. Prior surgery deemed a success.EXAM: The patient appears well- developed, well-nourished, and in no acute distress. The patient's body habitus is approximately normal weight. The patient is oriented to person, place and time. The patient's mood is appropriate to situation. The patient's coordination is normal.There is no reproducible pain on exam today. Bilateral upper extremities show no deformities, no skin lesions and pain-free physiologic range of motion of elbows, wrists and hands without significant discomfort. The patient is neurovascularly intact to light touch and has brisk capillary refill to all digits. There are no signs of disuse. There are no dystrophic changes. There is no allodynia. There are no skin changes. Full pronation, supination. Risks 60 flexion, 60 extension. 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 Surgery Description: Rt wrist proximal row carpectomy with removal of scaphoid, lunate and triquetrum; Rt wrist radial styloidectomy; denervation with posterior interosseous nerve excision. - 07/12/19 PRCSpasm and pain was fleeting, no obvious concerns. Follow-up if reoccurrence.The patient no longer has any significant discomfort or reproducible findings on exam today. Therefore, I feel no further treatment or follow-up is indicated at this time. If symptoms return, I would be happy to see the patient back at any time.The patient was provided with my office contact information with telephone numbers. Should there be any concerns or change in symptoms, for which the patient would like to see me again sooner, our office may be contacted to be seen at any point. Work / School NoteThe incident described by the patient is a competent medical cause of this injury. The patient's complaints are consistent with the history of the injury/illness. The patient's history of the injury/illness is consistent with my objective findings. The percentage of temporary impairment is 0%. The patient is working at this time. 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 DisclaimersThis document was dictated and electronically signed using Websense software. A reasonable attempt at proof reading has been made to minimize errors. Please call with any questions. Signatures Electronically signed by : Ten Armas M.D.; Oct 23 2020 12:15PM EST (Author) Name Value Range Interpretation Code Description Data Malathi rce(s) Supporting Document(s) ID Date Data Source [id number] 10/13/2020 08:52:00 AM EDT [facility] Name Value Range Interpretation Code Description Data Malathi rce(s) Supporting Document(s) SARS coronavirus 2 RNA Not Detected [facility] This lab was ordered by [facility] and reported by [facility]. ID Date Data Source [id number] 09/26/2020 10:52:53 PM EDT [facility] PCName: Kylie EarpDOB: 1995Provider: Anya LopezhDOS: 09/17/2020 Reason For VisitKylie Valderrama is here today for Right Wrist. Kylie had his first Covid vaccine on 08/28/20. Kylie had his second Covid vaccine on 09/21/20. Kylie Valderrama is an established patient here for follow up. 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 He states about 2 weeks ago after typing 6 straight hours he was having a lot of lateral hand/wrist pain that became purple. He states he went to an ER, which was unremarkable. He continues attending PT/OT and feels it does help. He presents wearing a splint. Other DOI/DOO:. Surgery DOS: 07/12/2019. Surgery Description: right wrist proximal row carpectomy. The patient has had a course of physical therapy for greater than 4 weeks. The patient has followed a home exercise program for greater than 4 weeks. Physical therapy and/or home exercise program has been effective. The patient has not had a course of NSAIDs for greater than 4 weeks. 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 History of Present IllnessKylie is a 25-year-old male, prior patient who presents with recurrence of right wrist pain. He underwent a proximal row carpectomy with removal of the scaphoid, lunate and triquetrum with radial styloidectomy and posterior interosseous nerve excision on 07/12/2019 for diagnosis of a Kienbock's disease he was doing well and making an uneventful postoperative recovery. I saw him last in August of last year for his second postoperative visit. At that time, he was fit with a custom Orthoplast splint and given a prescription for PT/OT to take place in the [place] area. It was suggested that he return for follow-up but this never materialized. He advises me that he did well until a month and a half ago when he began noting pain once again. This was not in association with a specific injury or trauma but advises me that he was doing a lot of typing, gripping and repetitive motion. He developed swelling and what he describes as discoloration to the entire dorsum of his hand prompting evaluation at an emergency room setting. X-rays were obtained and reported as negative. He was placed in a brace and also prescribed a Medrol Dosepak that has only been minimally helpful for his symptoms. He is still complaining of pain in the wrist joint as well as some clicking and crepitation. His symptoms are worse with lifting and repetitive motion. He grades his pain as a 4-5. He is right-hand dominant. Results/DataXRays were ordered, obtained and interpreted today in the office. Indication: pain/dysfunction. Side: Right Site: wrist Views: 3 views AP/Lateral/Scaphoid Findings: No fractures, dislocations, or degenerative changes. There is some calcification and perhaps bone regrowth in the area of his proximal row carpectomy. AssessmentRight wrist painStatus post proximal row carpectomy of the right wrist, subsequent encounter Plan Start: Naproxen 500 MG Oral Tablet (Naprosyn); 1 po bid with food MDD:2 Rx By: Tigist Lopez; Dispense: 0 Days ; #:60 Tablet; Refill: 0;For: Kienbock's disease of lunate bone of right wrist in adult; ADAM = N; Verified Transmission to [facility]; Last Updated By: Rossy Amezcua; 09/17/2020 10:48:22 AM X-Ray I Wrist - 3 views (XRays were ordered, obtained and interpreted today in theoffice. Indication: pain/dysfunction.); Status:Complete; Done: [id number] Perform:SOS28; Due:[id number]; Last Updated By:Idalia Holliday; 09/17/2020 10:20:51 AM;Ordered; For:Pain in wrist; Ordered By:Tigist Lopez;Laterality: : Right Plan, Assessment and Recommendation(s) continue with current plan. continue with conservative treatment. Schedule Appointment: Weeks: 4 We discussed his x-rays and clinical findings. I feel that his pain seems to be inflammatory in origin. He already has a wrist brace that he will wear particularly in the evening and to sleep at night. He will ice as needed and use [id number] NSAIDs. I will discuss his x-rays with Dr. Armas and also encouraged Kylie to set up a follow-up appointment in 3 to 4 weeks to perhaps consider a steroid injection. For now, he will limit activities that exacerbate his symptoms. He is affiliated. 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 This document was dictated and electronically signed using Websense software. A reasonable attempt at proof reading has been made to minimize errors. Please call with any questions. Signatures Electronically signed by : Tigist Lopez NP; Sep 18 2020 2:59PM EST (Author) Electronically signed by : Ten Armas M.D.; Sep 26 2020 10:52PM EST Name Value Range Interpretation Code Description Data Malathi rce(s) Supporting Document(s) Procedure Social History No Information
[2021-04-25 03:25] LABS: BLOOD UREA NITROGEN 10 MG/DL (7-18); CALCIUM LEVEL 9.1 MG/DL (8.5-10.1); CARBON DIOXIDE LEVEL 24 MEQ/L (21-32); CHLORIDE LEVEL 109 MEQ/L (98-107); CREATININE FOR GFR 1.12 MG/DL (0.70-1.30); ETHYL ALCOHOL (ETHANOL) 0.249 % (0.000-0.010); GLOMERULAR FILTRATION RATE > 60.0 (>60); GLUCOSE, FASTING 87 MG/DL (70-100); POTASSIUM SERUM 3.5 MEQ/L (3.5-5.1); SODIUM LEVEL 144 MEQ/L (136-145)
[2021-04-25 05:14] LABS: AMPHETAMINES LEVEL URINE NEGATIVE (NEGATIVE); BARBITURATES URINE NEGATIVE (NEGATIVE); BENZODIAZEPINES URINE NEGATIVE (NEGATIVE); CANNABINOIDS URINE NEGATIVE (NEGATIVE); COCAINE METABOLITE URINE NEGATIVE (NEGATIVE); METHADONE URINE NEGATIVE (NEGATIVE); OPIATES URINE NEGATIVE (NEGATIVE); PHENCYCLIDINE URINE NEGATIVE (NEGATIVE)
[2021-04-25 06:22] VITALS: BP 113/53
--- OUTSIDE RECORDS SUMMARY | 2021-04-25 06:24 | CCD ---
Author Author [facility] Organization [facility] Address Unknown Phone Unavailable Care Team Providers Care Security Investigator Name Role Phone [facility], [facility] [place] Unavailable Unavailable TURRIN, PERRY Unavailable Unavailable TURRIN, [...] BENNETT,, [place] Unavailable Unavailable PFLUGH, TIGIST DIRECTOR TALENT ACQUISITION Unavailable Unavailable PFLUGH, TIGIST DIRECTOR TALENT ACQUISITION Unavailable Unavailable PFLUGH, TIGIST DIRECTOR TALENT ACQUISITION Unavailable Unavailable PFLUGH, TIGIST DIRECTOR TALENT ACQUISITION Unavailable Unavailable PFLUGH, TIGIST DIRECTOR TALENT ACQUISITION Unavailable Unavailable PFLUGH, TIGIST DIRECTOR TALENT ACQUISITION Unavailable Unavailable PFLUGH, TIGIST DIRECTOR TALENT ACQUISITION Unavailable Unavailable PFLUGH, TIGIST DIRECTOR TALENT ACQUISITION Unavailable Unavailable PFLUGH, TIGIST DIRECTOR TALENT ACQUISITION Unavailable Unavailable PFLUGH, TIGIST DIRECTOR TALENT ACQUISITION Unavailable Unavailable PFLUGH, TIGIST DIRECTOR TALENT ACQUISITION Unavailable Unavailable PFLUGH, TIGIST DIRECTOR TALENT ACQUISITION Unavailable Unavailable PFLUGH, TIGIST DIRECTOR TALENT ACQUISITION Unavailable Unavailable PFLUGH, TIGIST DIRECTOR TALENT ACQUISITION Unavailable Unavailable PFLUGH, TIGIST DIRECTOR TALENT ACQUISITION Unavailable Unavailable PFLUGH, TIGIST DIRECTOR TALENT ACQUISITION Unavailable Unavailable PFLUGH, TIGIST DIRECTOR TALENT ACQUISITION Unavailable Unavailable PFLUGH, TIGIST DIRECTOR TALENT ACQUISITION Unavailable Unavailable PFLUGH, TIGIST DIRECTOR TALENT ACQUISITION Unavailable Unavailable PFLUGH, TIGIST DIRECTOR TALENT ACQUISITION Unavailable Unavailable PFLUGH, TIGIST DIRECTOR TALENT ACQUISITION Unavailable Unavailable PFLUGH, TIGIST DIRECTOR TALENT ACQUISITION Unavailable Unavailable PFLUGH, TIGIST DIRECTOR TALENT ACQUISITION Unavailable Unavailable PFLUGH, TIGIST DIRECTOR TALENT ACQUISITION Unavailable Unavailable PFLUGH, TIGIST DIRECTOR TALENT ACQUISITION Unavailable Unavailable PFLUGH, TIGIST DIRECTOR TALENT ACQUISITION Unavailable Unavailable PFLUGH, TIGIST DIRECTOR TALENT ACQUISITION Unavailable Unavailable PFLUGH, TIGIST DIRECTOR TALENT ACQUISITION Unavailable Unavailable PFLUGH, TIGIST DIRECTOR TALENT ACQUISITION Unavailable Unavailable PFLUGH, TIGIST DIRECTOR TALENT ACQUISITION Unavailable Unavailable PFLUGH, TIGIST DIRECTOR TALENT ACQUISITION Unavailable Unavailable PFLUGH, TIGIST DIRECTOR TALENT ACQUISITION Unavailable Unavailable PFLUGH, TIGIST DIRECTOR TALENT ACQUISITION Unavailable Unavailable PFLUGH, TIGIST DIRECTOR TALENT ACQUISITION Unavailable Unavailable PFLUGH, TIGIST DIRECTOR TALENT ACQUISITION Unavailable Unavailable PFLUGH, TIGIST DIRECTOR TALENT ACQUISITION Unavailable Unavailable PFLUGH, TIGIST DIRECTOR TALENT ACQUISITION Unavailable Unavailable PFLUGH, TIGIST DIRECTOR TALENT ACQUISITION Unavailable Unavailable PFLUGH, TIGIST DIRECTOR TALENT ACQUISITION Unavailable Unavailable PFLUGH, TIGIST DIRECTOR TALENT ACQUISITION Unavailable Unavailable PFLUGH, TIGIST DIRECTOR TALENT ACQUISITION Unavailable Unavailable PFLUGH, TIGIST DIRECTOR TALENT ACQUISITION Unavailable Unavailable PFLUGH, TIGIST DIRECTOR TALENT ACQUISITION Unavailable Unavailable PFLUGH, TIGIST DIRECTOR TALENT ACQUISITION Unavailable Unavailable PERNELL ARMAS MD Unavailable Unavailable [...] Unavailable Unavailable PERNELL ARMAS MD Unavailable Unavailable PRENELL ARMAS MD Unavailable Unavailable PERNELL ARMAS MD [...] is protected by Article 27-F of the [facility] Public Health law. If you continue you may have access to information: Regarding HIV / AIDS; Provided by facilities licensed or operated by the [facility] Office of Mental Health; or Provided by the [facility] Office for People With Developmental Disabilities. If such information is present, then the following [facility] mandated warning applies: This information has [...] law may result in a fine or care home sentence or both. A general authorization for the release of medical or other information is NOT sufficient authorization for further disc losure. Allergies and Adverse Reactions Type Description Substance Reaction Status Data Source(s ) No Known Allergies No Known Allergies [facility] Hospital Encounters Encounter Providers Location Date Indications Data Source(s ) Outpatient Attender: [facility] 11/16/2020 02:2 6:00 PM EDT [facility] Emergency Attender: PERRY PATELConsultant: STAFF NON 11/16/2020 01:47:00 PM EDT - 11/16/2020 05:05:00 PM EDT [facility] Hosp ital Patient discharged. Outpatient Attender: ILEANA ARMAS MDReferrer: AMY BENNETT, 10/23/2020 12:15:55 PM EDT [facility] Outpatient Attender: TIGIST LOPEZ NPReferrer: AMY BENNETT, 09/26/2020 10:52:53 PM EDT [facility] Immunizations Vaccine Date Status Description Data Source(s) COVID-19 VACCINE Pfizer 09/25/2020 12:00:00 AM EDT completed [facility] Vaccine Series Complete: NOThis Data was Submitted to [facility] Via [employer] Medications Medication Brand Name Start Date Product [...] type / Coverage type Policy ID Covered alliance party ID Covered alliance party's relationship to delaney Policy Delaney Plan Information [facility] [id number] SP [id number] [facility] F [id number] SELF [id number] [facility] [id number] 18 [id number] [facility] [id number] SP [id number] [facility] [id number] 18 [id number] Problems, Conditions, and Diagnoses Code Display Name Description Problem Type Effective Dates Data Source(s) K06656 Nicotine dependence, other tobacco produ ct, uncomplicated Nicotine dependence, other tobacco product, uncomplicated Diagnosis 11/16 01:47:00 PM EDT [facility] [id number] Cellulitis of left upper limb Cellulitis of left upper limb Diagnosis 11/16/2020 01:47:00 PM EDT [facility] [id number] Other infective bursitis, left elbow Oth er infective bursitis, left elbow Diagnosis 11/16/2020 01:47:00 PM EDT [facility] [id number] Pain in left elbow Pain in left elbow Diagnosis 01:47:00 PM EDT [facility] Surgeries/Procedures No Information Results ID Date Data Source [id number] 03/13/2021 09:19:00 PM EDT [facility] Name Value Range Interpretation Code Description Data Malathi rce(s) Supporting Document(s) SARS coronavirus 2 RNA [Presence] in Res piratory specimen by MIMA with probe detection NEGATIVE [facility] This lab was ordered by [facility] a nd reported by [facility]. ID Date Data Source [id number] 11/17/2020 09:39:00 AM EDT [facility] [address] [place] [address] PHONE: [phone] FAX: [phone] Name .................. : DENA Alfaro Acct Number.................. : [id number] ROOM. ................. : TR-1A MR Number ................... : [id number] Stay type ............. : E/R Discharge Date......... ... : Admit Date ......... : 11/16/20 Admit Phys .................... : JORGE SCHNEIDER Date of ....... : 1995 Family Phys ................... : NON STAFF Phone .................. : [phone] Age ................................ : 25 Film# .................. .:[id number] Sex ................................. : M Unsigned transcriptions are preliminary reports and do not represent a medical or legal document ELBOW AP & LATERAL LT [id number] COMPLETE:11/16/20 14:10 [id number] Reason(s): Cellulitis LEFT ELBOW X-RAY: FINDINGS: There [...] rce(s) Supporting Document(s) ID Date Data Source [id number] 11/16/2020 01:47:00 PM EDT [facility] 1 OrderSheet [facility] Emergency Department [address] [place] [address] Phone #: ext- [phone] 11/16/2020 13:45 Patient: DENA, KYLIE W Sex: [...] Tucker RN, M.D.;Blood Culture STAT 14:11/16/2020 14:12 [id number] X2 (Perry Cruz RN14:11/16/2020) Kathy;Blood Culture STAT 14:11/16/2020 14:42 [id number] X2 (Perry Cruz RN14:11/16/2020) Kathy;DIAGNOSTIC STUDY ORDERSOrder Description Priority Entered Acknowledged InitialedElbow AP And LAT STAT 14:11/16/2020 14:12 DorisLeft (Oxygen?(No)) Perry Patel RN, M.D.; Reason for Study: Cellulitis, Elbow Pain, Pain 2 OrderSheet [facility] Emergency Department [address] [place] [address] Phone #: ext- [phone] 11/16/2020 13:45 [id number] Sex[facility] M : 1995 Age: 25yMEDICATION/IV/DRIP/FLUID ORDERSOrder [...] 16:21 11/16/2020 16:29 Delia(1gm/50ml) IVPB Perry Patel [id number] mg with M.D.;Dextrose 50 mlspike bag (D5W)GENERAL ORDERSOrder Description Priority Entered Acknowledged InitialedSling - arm 16:21 11/16/2020 16:36 Perry Tucker RN, M.D.;[Electronically signed by Delia Nelson RN (17:12 11/16/2020)][Electronically signed by Perry Patel M.D. (17:14 11/16/2020)][Electronically locked by Delia Nelson RN (17:12 11/16/2020)] Name Value Range Interpretation Code Description Data Malathi rce(s) Supporting Document(s) ID Date Data Source [id number] 11/16/2020 01:47:00 PM EDT [facility] 1 Medication Reconciliation Report [facility] Emergency Department [address] [place] [address] Phone #: [phone]- [phone] 11/16/2020 13:45 Patient: KYLIE VALDERRAMA Sex: M [...] Dispense 28 tablet. Refills: 0.Substitution permitted.Pharmacy - [email or web address]36 - [address] [facility] ; [place], [place] [phone]. . -- Perry Patel M.D. Name Value Range Interpretation Code Description Data Malathi rce(s) Supporting Document(s) ID Date Data Source [id number] 11/16/2020 01:47:00 PM EDT [facility] 1 Medication Administration Record [facility] Emergency Department [address] [place] [address] Phone #: ext- [phone] 11/16/2020 13:45 Patient: KYLIE VALDERRAMA Sex: M : 1995 Age: 25yWeight: 93.4 kgHeight/Length: 72 inBMI: 28ALLERGIES: No Known Drug Allergy Date/Time Medication Administered Medication OrderedStart IV NS W/ BOLUS NS IV 1000 mL Bolus: : Bolus 582939:47 11/16/2020 Dose: IV Fluids mL (X1)Delia Nelson RN Rate: 1000 mL/hr over 1 hour(s)---- Bolus: 1000 mL over 1 hour(s)Stop Dispensed: 1000 mL bag15:47 11/16/2020 Site: #1 right Teetee Nelson RNGiven TORADOL [IVP] (KETOROLAC Toradol 15 mg IVP X1 dose: 15 mg14:35 11/16/2020 TROMETHAMINE) (NOW x1)Delia Nelson RN Dose: 15 mg IVP Site: #1 right ACStart VANCOMYCIN [IVPB] Vancomycin IVPB (15 mg/kg) 453134:37 11/16/2020 Dose: 1300 mg IVPB mg with [...] mL bagStop Site: #1 right AC16:57 1Djamarcus eNlson RN Name Value Range Interpretation Code Description Data Malathi rce(s) Supporting Document(s) ID Date Data Source [id number] 11/16/2020 01:47:00 PM EDT [facility] 1 General Instructions [facility] Emergency Department [address] [place], [place] [address] Phone #: ext- [phone] 11/16/2020 13:45 Patient: KYLIE VALDERRAMA Sex: M [...] Dispense 28 tablet. Refills: 0.Substitution permitted.Pharmacy - [email or web address] #58 - [address] [facility] ; [place], [place] [phone]. .Follow-up:Return to the emergency department as needed. [...] to plan of care. 2 General Instructions [facility] Emergency Department [address] [place] [address] Phone #: ext- [phone] 11/16/2020 13:45 Patient: [...] Red areas that spread 3 General Instructions [facility] Emergency Department [address] [place] [address] Phone #: ext- [phone] 11/16/2020 13:45 Patient: KYLIE VALDERRAMA Sex: M : 1995 Age: 25y Swelling or pain that gets worse Fluid leaking from the skin (pus) Fever higher of 100.4 F (38.0 C) or higher after 2 days on antibiotics [id number] [employer]. [address] [place] [address], [place] [address]. All rights reserved. This information is not [...] pain and swelling improves. 4 General Instructions [facility] Emergency Department [address] [place] [address] Phone #: ext- [phone] 11/16/2020 13:45 Patient: KYLIE VALDERRAMA Sex: M : 1995 Age: 25y To make an ice pack, put ice cubes in a sealed plastic bag. Wrap the bag in a clean, thin towel or cloth. Never put ice or an ice pack directly on the skin. As the ice melts, be careful to not to get the wrap or splint wet. You may take yiar-sec-bityyac pain medicine to treat pain and inflammation, [...] to 48 hours, or as advised Chills [phone] [employer] [address] [place] [address], [place] [address]. All rights reserved. This information is not [...] the sling longer than 5 General Instructions [facility] Emergency Department [address] [place] [address] Phone #: ext- [phone] 11/16/2020 13:45 Patient: [...] should be level with the elbow. [employer] [address] [place] [address], [place] [address]. All rights reserved. This information is not intended as asubstitute for professional medical care. Always follow your healthcare professional's instructions. You have been given the following additional information: Cellulitis Bursitis Sling No driving or operating machinery until released. Limit lifting until released. No strenuous activity until released. Return to work when released by doctor.(Electronically signed by Perry Patel M.D. 11/16/2020 17:14) Name Value Range Interpretation Code Description Data Malathi rce(s) Supporting Document(s) ID Date Data Source [id number] 11/16/2020 01:47:00 PM EDT [facility] 1 Clinical Report - Nurses [facility] Emergency Department [address] [place] [address] Phone #: ext- [phone] 11/16/2020 13:45 Patient: KYLIE VALDERRAMA Sex: M : 1995 Age: 25yTRIAGEArrived by private vehicle. Historian: patient. Accompanied by friend. ( [facility] and dxwith bursitis r/t bacterial infection. pt given bactrim and had dose last night and this am and indomethacin.pt reports arm more swollen today and a low grade fever of 99.5. pt 98.2 orally upon arrival to [facility] ED.).Triage time: 13:48 11/16/2020. Acuity: LEVEL 4.Chief Complaint: LEFT UPPER EXTREMITY PAIN, SWELLING and REDNESS.Alert.This started yesterday. Onset. (0700). ( pt had xray yesterday and it was negative and had blood workdone). 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 --13:54 11/16/20 Bette Herman R.N.13:48 11/16/20. BP: [...] Immunizations: up-to-date. 2 Clinical Report - Nurses [facility] Emergency Department [address] [place] [address] Phone #: ext- [phone] 11/16/2020 13:45 Patient: [...] factors identified. --14:01 11/16/20 Delia Nelson RN.PHYSICAL WHSYEAOJMI91:55 11/16/20. Ambulatory to room.GENERAL / NEURO / [...] to radiology by wheelchair with mask and proof technician helper. --14:29 11/16/20 [place] patient coordinator front desk, Max, ER Tech1 Correction --14:30 11/16/20 [place] patient coordinator front desk Max, ER Tech1 14:27 11/16/20. Patient transported to radiology by wheelchair with mask and proof technician helper. --14:30 11/16/20 [place] patient coordinator front desk, Max, ER Tech1 Patient returned from radiology by wheelchair with mask and proof technician helper. --14:30 11/16/20 [place] patient coordinator front desk Max, ER Tech1 14:35 11/16/2020 Site #1 [...] redness, or 3 Clinical Report - Nurses [facility] Emergency Department [address] [place] [address] Phone #: ext- [phone] 11/16/2020 13:45 Patient: KYLIE VALDERRAMA Sex: M [...] Delia Nelson RN16:15 11/16/20. Orthopedic surgery consulted ([facility] stock handler floorperson). --16:35 11/16/20 FRANKY Talavera16:27 11/16/2020 Started 1 gm of CEFTRIAXONE (1GM/50ML) IVPB in bag #1 50 mL; at 100 mL/hr over30 minute(s) via site #1. via IV pump. Allergies verified and confirmed 5 rights. IV patency established. IVsite checked: no pain, redness, or swelling. IV flushed thoroughly pre- and post-medication administration. 4 Clinical Report - Nurses [facility] Emergency Department [address] [place] [address] Phone #: ext- [phone] 11/16/2020 13:45 Patient: [...] Manual pressure and bandage applied. --17:09 11/16/20 Delia Nelson RN 17:00 11/16/20. Sling applied to left arm by nurse; distal pulses intact, sensation intact and motor function within normal limits. --17:10 11/16/20 Delia Nelson RN.DISPOSITION / DISCHARGE 17:11/16/20. Condition at departure: improved and stable. No learning barriers present. Discharge instructions provided and reviewed with the patient. Reviewed medication(s) side effects, precautions, dosing and course information. Prescription(s) sent electronically to pharmacy ([facility]). Patient verbalized understanding. Written instructions provided in Uzbek. The patient was discharged home and accompanied by repair servicer. He left ambulatory and via private vehicle. Prototype Engineer driving. --17:11 11/16/20 Delia Nelson RN 17:00 11/16/20. BP: 126/89. MAP: 101. HR: 61. RR: 14. O2 saturation: 99%. Temp: 98.8 F. Pain level now: 0/10. --17:11 11/16/20 Delia Nelson RN.Locked/Released at 11/16/2020 17:12 by Delia Nelson RN Name Value Range Interpretation Code Description Data Malathi rce(s) Supporting Document(s) ID Date Data Source [id number] 11/16/2020 01:47:00 PM EDT [facility] 1 Clinical Report - Physicians/Mid Levels [facility] Emergency Department [address] [place] [address] Phone #: ext- [phone] 11/16/2020 13:45 Patient: [...] had redness and swelling. (pt seen at [facility] ER last night for this problem, was dxed w left elbow bursitis, workup was done, WBC 38028, no shift, ESR, CRP nml, pt was given Ceftriaxone iv and Septra PO, prescribed Septra and Indocin; no sling, elbow worse today). Patient denies an injury. Similar symptoms previously. None. Recent medical care: The patient was seen recently at another facility in the emergency department. ( [facility] ER last evening, see ER records).REVIEW OF [...] day. 2 Clinical Report - Physicians/Mid Levels [facility] Emergency Department [address] [place] [address] Phone #: ext- [phone] 11/16/2020 13:45 Patient: [...] 10.4) 3 Clinical Report - Physicians/Mid Levels [facility] Emergency Department [address] [place] [address] Phone #: ext- [phone] 11/16/2020 13:45 Patient: KYLIE VALDERRAMA Sex: M [...] Male GFR Interprentation 20-49 yrs >60 mL/min Ijeobo71-08 yrs >56 mL/min Normal 60-69 yrs >49 mL/min Normal 70-79yrs>42 mL/min Normal 80 and above >35 mL/min Normal Female GFRInterpretation 20-39 yrs >60 mL/min Normal 40-49 yrs >58 mL/minNormal 50-59 yrs >51 mL/min Normal 60-69 yrs >45 mL/min Iuvulx32-34 yrs >39 mL/min Normal 80 and above >32 mL/min NormalSed. Rate: (OXANA: 11/16/2020 14:26) ( MsgRcvd 11/16/2020 16:01) Final results Test Result Flag Units (Reference) SED RATE 2 mm/hr (0 - 15) SED RATE REENTER 2 4 Clinical Report - Physicians/Mid Levels [facility] Emergency Department [address] [place] [address] Phone #: ext- [phone] 11/16/2020 13:45 Patient: [...] givenCeftriaxone IV and Septra PO yesterday at [facility] ER, on since; will do septic joint workup, give ivfluids, toradol iv and vancomycin iv 15:54 11/16/20. WBC 64844 74%N, CRP 34 high today, lactic 0.8 nml, uric acid nml, elbow x-ray nml, ESR 2 nml 16:22 11/16/20. pt is doing markedly better, less red less swollen, feels better, moves elbow normally w/o issues; workup compared to yesterday and WBC improved slightly, CRP up, rest is nml; case discussed w Dr. Guardado, ortho on-call at [facility], who saw pt in their ER last [...] infection. 5 Clinical Report - Physicians/Mid Levels [facility] Emergency Department [address] [place] [address] Phone #: ext- [phone] 11/16/2020 13:45 Patient: KYLIE VALDERRAMA Sex: M [...] Dispense 28 tablet. Refills: 0. Substitution permitted. [facility] [address] [place], [place] [phone]. . Follow-up: Return to the emergency department [...] 11/16/2020 17:14) 6Clinical Report - Physicians/Mid Levels [facility] Emergency Department [address] [place] [address] Phone #: ext- [phone] 11/16/2020 13:45 Patient: KYLIE VALDERRAMA Sex: M : 1995 Age: 25y Name Value Range Interpretation Code Description Data Malathi rce(s) Supporting Document(s) ID Date Data Source [id number] 11/21/2020 05:01:00 PM EDT [facility] [address] Name Value Range Interpretation Code Description Data Malathi rce(s) Supporting Document(s) Bacteria identified in Blood by Culture [facility] NO GROWTH AFTER 5 DAYS ID Date Data Source [id number] 11/22/2020 04:15:00 PM EDT [facility] Name Value Range Interpretation Code Description Data Malathi rce(s) Supporting Document(s) CULTURE BLOOD [facility] spital _CULTURE BLOOD_ TEST PERFORM ED AT [facility] [address] [place] [address] CLIA# [id number] SEE SCANNED REPORT{ PRELIM ID Date Data Source [id number] 11/16/2020 03:31:00 PM EDT [facility] Name Value Range Interpretation Code Description Data Malathi rce(s) Supporting Document(s) Lactic w Rfx (if elevated) 0.8 mmol/L 0.5-2.0 [facility] ID Date Data Source [id number] 11/21/2020 03:05:00 PM EDT [facility] Name Value Range Interpretation Code Description Data Malathi rce(s) Supporting Document(s) Bacteria identified in Blood by Culture [facility] NO GROWTH AFTER 5 DAYS ID Date Data Source [id number] 11/22/2020 04:15:00 PM EDT [facility] Name Value Range Interpretation Code Description Data Malathi rce(s) Supporting Document(s) CULTURE BLOOD [facility] spital _CULTURE BLOOD_ TEST PERFORM ED AT [address] [address] CLIA# [id number] SEE SCANNED REPORT{ PRELIM ID Date Data Source [id number] 11/16/2020 05:10:00 PM EDT [facility] Value Range Interpretation Code Description Data Malathi rce(s) Supporting Document(s) LACTIC ACID (LACTATE) [facility] TEST PERFORMED AT [address] [address] CLIA# [id number] SEE SCANNED REPORT ID Date Data Source [id number] 11/16/2020 04:01:00 PM EDT [facility] Value Range Interpretation Code Description Data Malathi rce(s) Supporting Document(s) Erythrocyte sedimentation rate by Westergren method 2 mm/hr 0 - 15 [facility] SED RATE REENTER 2 [facility] ID Date Data Source [id number] 11/16/2020 03:47:00 PM EDT [facility] Name Value Range Interpretation Code Description Data Malathi rce(s) Supporting Document(s) CBC W/AUTOMATED DIFF [facility] COMPLETE BLOOD COUNT Leukocytes [#/volume] in Blood by Automated count 17.3 10^3/uL 4.2 - 11.0 H [facility] Erythrocytes [#/volume] in Blood by Automated count 4.82 10^6/uL 4. 50 - 6.30 [facility] Hemoglobin [Mass/volume] in Blood 15.1 g/dL 14.0 - 16.0 [facility] Hematocrit [Volume Fraction] of Blood by Automated count 45.0 % 4 1.0 - 51.0 [facility] Erythrocyte mean corpuscular volume [Entitic volume] by Auto mated count 93.4 fL 80.0 - 94.0 [facility] Erythrocyte mean corpuscular hemoglobin [Entitic mass] by Automated count 31.3 pg 27.0 - 34.0 [facility] Erythrocyte mean corpuscular hemoglobin concentration [Mass/volume] by Automated count 33.6 g/dL 31.0 - 36.0 [facility] Erythrocyte distribution width [Ratio] by Automated count 12.9 % 11.5 - 14.8 [facility] Platelets [#/volume] in Blood by Automated count 196 10^3/uL 150 - 45 0 [facility] Platelet mean volume [Entitic volume] in Blood by Automated count 10.3 fL 7.4 - 10.4 [facility] Neutrophils/100 leukocytes in Blood by Automated count 73.8 % 37. 0 - 80.0 [facility] Lymphocytes/100 leukocytes in Blood by Manual count 14.7 % 25.0 - 40.0 L [facility] Monocytes/100 leukocytes in Blood by Automated count 9.7 % 3.0 - 8.0 H [facility] Eosinophils/100 leukocytes in Blood by Automated count 1.0 % 0.0 - 7.0 [facility] Basophils/100 leukocytes in Blood by Automated count 0.3 % 0.0 - 2.0 [facility] %IG 0.5 % 0.0 - 0.0 [facility] % 0.0 - 0.0 [facility] al Neutrophils [#/volume] in Blood by Automated count 12.77 10^3/uL 2. 00 - 6.90 H [facility] Lymphocytes [#/volume] in Blood by Automated count 2.54 10^3/uL 0.60 - 3.40 [facility] Monocytes [#/volume] in Blood by Automated count 1.68 10^3/uL 0.00 - 0.90 H [facility] Eosinophils [#/volume] in Blood by Automated count 0.17 10^3/uL 0.00 - 0.70 [facility] Basophils [#/volume] in Blood by Automated count 0.05 10^3/uL 0.00 - 0.20 [facility] #IG 0.08 10^3/uL 0.00 - 0.10 [facility] #NRBC 0.00 10^3/uL 0.00 - 0.00 [facility] MANUAL DIFF SEE BELOW [facility] ital Segmented neutrophils/100 leukocytes in Blood by Manual count 80 % 37 - 80 [facility] %LYMPH 12 % 25 - 40 L [facility] al %MONO 7 % 3 - 8 [facility] %EOS 1 % 0 - 7 [facility] al RBC MORPH NOT INDICATED [facility] ID Date Data Source [id number] 11/16/2020 03:47:00 PM EDT [facility] Name Value Range Interpretation Code Description Data Malathi rce(s) Supporting Document(s) Urate [Mass/volume] in Serum or Plasma 3.9 MG/DL 2.5 - 8.5 [facility] ID Date Data Source [id number] 11/16/2020 03:32:00 PM EDT [facility] Name Value Range Interpretation Code Description Data Malathi rce(s) Supporting Document(s) C reactive protein [Mass/volume] in Serum or Plasma by High sensitivity method 34.42 MG/L 1.00 - 3.00 H [facility] CDC/S HS-CRP CUT-OFF: RELATIVE RISK: <1.0 mg/L Low 1.0 - 3.0 mg/L Average >3.0 mg/L High Optimally, the average of HS-CRP results repeated two weeks apart should be used for risk assessment. ID Date Data Source [id number] 11/16/2020 03:24:00 PM EDT [facility] Name Value Range Interpretation Code Description Data Malathi rce(s) Supporting Document(s) COMPREHENSIVE METABOLIC PANEL [facility] COMPREHENSIVE METABOLIC PANEL Sodium [Moles/volume] in Serum or Plasma 138 mEq/L 134 - 153 [facility] Potassium [Moles/volume] in Serum or Plasma 3.9 mEq/L 3.6 - 5.0 [facility] Chloride [Moles/volume] in Serum or Plasma 103 mEq/L 98 - 107 [facility] Carbon dioxide, total [Moles/volume] in Serum or Plasma 25 MEQ/L 22 - 30 [facility] Glucose [Mass/volume] in Serum or Plasma 96 MG/DL 70 - 99 [facility] BUN 16 MG/DL 7 - 21 [facility] al Creatinine [Mass/volume] in Serum or Plasma 0.9 MG/DL 0.7 - 1.5 [facility] BUN/CREAT 18 8 - 27 [facility] Protein [Mass/volume] in Serum or Plasma 6.5 G/DL 6.3 - 8.2 [facility] Albumin [Mass/volume] in Serum or Plasma 4.1 G/DL 3.9 - 5.0 [facility] Globulin [Mass/volume] in Serum by calculation 2.4 GM/DL 2.4 - 3.2 [facility] A/G RATIO 1.7 0.8 - 2.0 [facility] Calcium [Mass/volume] in Serum or Plasma 9.3 MG/DL 8.4 - 10.2 [facility] Bilirubin.total [Mass/volume] in Serum or Plasma <0.7 MG/DL 0.2 - 1.3 [facility] Alkaline phosphatase [Enzymatic activity/volume] in Serum or Plasma 67 U/L 38 - 126 [facility] Aspartate aminotransferase [Enzymatic activity/volume] in Serum or Plasma 40 U/L 5 - 40 [facility] Alanine aminotransferase [Enzymatic activity/volume] in Seru m or Plasma 33 U/L 7 - 56 [facility] Anion gap 3 in Serum or Plasma 10.0 mmol/L 8.0 - 16.0 [facility] AGE 25 yrs [facility] al NON-AA GFR >60 mL/min [facility] ital AFR AMER GFR >60 mL/min [facility] Male GFR In terprentation [...] >32 mL/min Normal ID Date Data Source [id number] 10/23/2020 12:15:55 PM EDT [facility] PC[facility]: Kylie EarpDOB: 1995Provider: ChandaTen [...] styloidectomy; denervation with posterior interosseous nerve excision. ([employer]). Patient is working at this time at [...] pronation, supination. Risks 60 flexion, 60 extension. 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 DisclaimersThis document was dictated and electronically signed using InternetVista software. A reasonable attempt at proof reading has been made to minimize errors. Please call with any questions. Signatures Electronically signed by : Ten Armas M.D.; Oct 23 2020 12:15PM EST (Author) Name Value Range Interpretation Code Description Data Malathi rce(s) Supporting Document(s) ID Date Data Source [id number] 10/13/2020 08:52:00 AM EDT [facility] Name Value Range Interpretation Code Description Data Malathi rce(s) Supporting Document(s) SARS coronavirus 2 RNA Not Detected [facility] This lab was ordered by [facility] and reported by [facility]. ID Date Data Source [id number] 09/26/2020 10:52:53 PM EDT [facility] PCName: Kylie EarpDOB: 1995Provider: Anya [...] for PT/OT to take place in the [place] area. It was suggested that he return [...] adult; ADAM = N; Verified Transmission to [facility]; Last Updated By: Rossy Amezcua; 09/17/2020 10:48:22 AM X-Ray I Wrist - 3 views (XRays were ordered, obtained and interpreted today in theoffice. Indication: pain/dysfunction.); Status:Complete; Done: [id number] Perform:[id number]; Due:[id number]; Last Updated By:Idalia Holliday; 09/17/2020 10:20:51 AM;Ordered; [...] He will ice as needed and use [id number] NSAIDs. I will discuss his x-rays with Dr. Armas and also encouraged Kylie to set up a follow-up appointment in 3 to 4 weeks to perhaps consider a steroid injection. For now, he will limit activities that exacerbate his symptoms. He is affiliated. 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 This document was dictated and electronically signed using InternetVista software. A reasonable attempt at proof reading [...]
--- NOTE | 2021-04-28 09:48 | ED PDOC ---
Post-Departure Follow-Up ct max fac faxed formal report to gayle zuluaga for fu Alonso Espinoza MD Apr 28, 2021 09:48
== END 2021-04-25 06:26 | disposition home or self-care (01) ==
LOC: M ED 01:49
DX: S09.90XA Unspecified injury of head, initial encounter (principal); W19.XXXA Unspecified fall, initial encounter; Y92.89 Other specified places as the place of occurrence of the external cause; F10.229 Alcohol dependence with intoxication, unspecified

== ENCOUNTER 2021-04-28 15:19 | Emergency (ER) | payer OTHER ==
[~2021-04-28] VITALS: Ht 182.9 cm; Wt 90.9 kg
[2021-04-28 15:19] VITALS: BP 126/80
[~2021-04-28 15:19] MED LIST changes: -NS 1,000 ML IV ONE
--- OUTSIDE RECORDS SUMMARY | 2021-04-28 16:50 | CCD ---
Author Author [facility] Organization [facility] Address Unknown Phone Unavailable Care Team Providers Care Wireless Technician Name Role Phone Hospital Lab, Area [facility] Unavailable Unavailable TURRIN, PERRY Unavailable Unavailable TURRIN, PERRY Unavailable Unavailable TURRIN, PERRY Unavailable Unavailable TURRIN, PERRY Unavailable Unavailable BENNETT,, NEW REYES Unavailable Unavailable BENNETT,, NEW REYES Unavailable Unavailable BENNETT,, NEW REYES Unavailable Unavailable BENNETT,, NEW REYES Unavailable Unavailable BENNETT,, NEW REYES Unavailable Unavailable BENNETT,, NEW REEYS Unavailable Unavailable BENNETT,, NEW REYES Unavailable Unavailable BENNETT,, NEW REYES Unavailable Unavailable BENNETT,, NEW REYES Unavailable Unavailable BENNETT,, NEW REYES Unavailable Unavailable BENNETT,, NEW REYES Unavailable Unavailable BENNETT,, NEW REYES Unavailable Unavailable BENNETT,, NEW REYES Unavailable Unavailable PFLUGH, TIGIST VP RESEARCH Unavailable Unavailable PFLUGH, TIGIST VP RESEARCH Unavailable Unavailable PFLUGH, TIGIST VP RESEARCH Unavailable Unavailable PFLUGH, TIGIST VP RESEARCH Unavailable Unavailable PFLUGH, TIGIST VP RESEARCH Unavailable Unavailable PFLUGH, TIGIST VP RESEARCH Unavailable Unavailable PFLUGH, TIGIST VP RESEARCH Unavailable Unavailable PFLUGH, TIGIST VP RESEARCH Unavailable Unavailable PFLUGH, TIGIST VP RESEARCH Unavailable Unavailable PFLUGH, TIGIST VP RESEARCH Unavailable Unavailable PFLUGH, TIGIST VP RESEARCH Unavailable Unavailable PFLUGH, TIGIST VP RESEARCH Unavailable Unavailable PFLUGH, TIGIST VP RESEARCH Unavailable Unavailable PFLUGH, TIGIST VP RESEARCH Unavailable Unavailable PFLUGH, TIGIST VP RESEARCH Unavailable Unavailable PFLUGH, TIGIST VP RESEARCH Unavailable Unavailable PFLUGH, TIGIST VP RESEARCH Unavailable Unavailable PFLUGH, TIGIST VP RESEARCH Unavailable Unavailable PFLUGH, TIGIST VP RESEARCH Unavailable Unavailable PFLUGH, TIGIST VP RESEARCH Unavailable Unavailable PFLUGH, TIGIST VP RESEARCH Unavailable Unavailable PFLUGH, TIGIST VP RESEARCH Unavailable Unavailable PFLUGH, TIGIST VP RESEARCH Unavailable Unavailable PFLUGH, TIGIST VP RESEARCH Unavailable Unavailable PFLUGH, TIGIST VP RESEARCH Unavailable Unavailable PFLUGH, TIGIST VP RESEARCH Unavailable Unavailable PFLUGH, TIGIST VP RESEARCH Unavailable Unavailable PFLUGH, TIGIST VP RESEARCH Unavailable Unavailable PFLUGH, TIGIST VP RESEARCH Unavailable Unavailable PFLUGH, TIGIST VP RESEARCH Unavailable Unavailable PFLUGH, TIGIST VP RESEARCH Unavailable Unavailable PFLUGH, TIGIST VP RESEARCH Unavailable Unavailable PFLUGH, TIGIST VP RESEARCH Unavailable Unavailable PFLUGH, TIGIST VP RESEARCH Unavailable Unavailable PFLUGH, TIGIST VP RESEARCH Unavailable Unavailable PFLUGH, TIGIST VP RESEARCH Unavailable Unavailable PFLUGH, TIGIST VP RESEARCH Unavailable Unavailable PFLUGH, TIGIST VP RESEARCH Unavailable Unavailable PFLUGH, TIGIST VP RESEARCH Unavailable Unavailable PFLUGH, TIGIST VP RESEARCH Unavailable Unavailable PFLUGH, TIGIST VP RESEARCH Unavailable Unavailable PFLUGH, TIGIST VP RESEARCH Unavailable Unavailable PFLUGH, TIGIST VP RESEARCH Unavailable Unavailable PFLUGH, TIGIST VP RESEARCH Unavailable Unavailable PERNELL ARMAS MD Unavailable Unavailable PERNELL ARMAS MD Unavailable Unavailable PERNELL ARAMS MD Unavailable Unavailable PERNELL ARMAS MD Unavailable [...] Unavailable Unavailable PERNELL ARMAS MD Unavailable Unavailable PENRELL ARMAS MD Unavailable Unavailable PERNELL ARMAS MD [...] Unavailable CHANDAPERNELL TAM MD Unavailable Unavailable CHANDAPERNELL TMA MD Unavailable Unavailable CHANDAPERNELL TAM MD Unavailable [...] Unavailable Unavailable PERNELL ARMAS MD Unavailable Unavailable PENRELL ARMAS MD Unavailable Unavailable PERNELL ARMAS MD [...] Unavailable Unavailable PERNELL ARMAS MD Unavailable Unavailable PERNLEL ARMAS MD Unavailable Unavailable PERNELL ARMAS MD [...] is protected by Article 27-F of the [facility] Public Health law. If you continue you may have access to information: Regarding HIV / AIDS; Provided by facilities licensed or operated by the [facility] Office of Mental Health; or Provided by the [facility] Office for People With Developmental Disabilities. If such information is present, then the following [facility] mandated warning applies: This information has been [...] law may result in a fine or nursing home sentence or both. A general authorization for the release of medical or other information is NOT sufficient authorization for further disc losure. Allergies and Adverse Reactions Type Description Substance Reaction Status Data Source(s ) No Known Allergies No Known Allergies [facility] Encounters Encounter Providers Location Date Indications Data Source(s ) Outpatient Attender: [facility] 11/16/2020 02:2 6:00 PM EDT [facility] Emergency Attender: PERRY PATELConsultant: STAFF NON 11/16/2020 01:47:00 PM EDT - 11/16/2020 05:05:00 PM EDT [facility] ital Patient discharged. Outpatient Attender: ILEANA ARMAS MDReferrer: AMY BENNETT, 10/23/2020 12:15:55 PM EDT [facility] Outpatient Attender: TIGIST LOPEZ NPReferrer: AMY BENNETT, 09/26/2020 10:52:53 PM EDT [facility] Immunizations Vaccine Date Status Description Data Source(s) COVID-19 VACCINE Pfizer 09/25/2020 12:00:00 AM EDT completed [facility] Vaccine Series Complete: NOThis Data was Submitted to [facility]. Medications Medication Brand Name Start Date Product [...] type / Coverage type Policy ID Covered constitution party ID Covered constitution party's relationship to delaney Policy Delaney Plan Information [facility] [id number] SP [id number] [facility] F [id number] SELF [id number] [facility] [id number] 18 [id number] [facility] [id number] SP [id number] [facility] [id number] 18 [id number] Problems, Conditions, and Diagnoses Code Display Name Description Problem Type Effective Dates Data Source(s) A78299 Nicotine dependence, other tobacco produ ct, uncomplicated Nicotine dependence, other tobacco product, uncomplicated Diagnosis 11/16 01:47:00 PM EDT [facility] R60478 Cellulitis of left upper limb Cellulitis of left upper limb Diagnosis 11/16/2020 01:47:00 PM EDT [facility] [id number] Other infective bursitis, left elbow Oth er infective bursitis, left elbow Diagnosis 11/16/2020 01:47:00 PM EDT [facility] [id number] Pain in left elbow Pain in left elbow Diagnosis 01:47:00 PM EDT [facility] Surgeries/Procedures No Information Results ID Date Data Source [id number] 03/13/2021 09:19:00 PM EDT [facility] Name Value Range Interpretation Code Description Data Malathi rce(s) Supporting Document(s) SARS coronavirus 2 RNA [Presence] in Res piratory specimen by MIMA with probe detection NEGATIVE [facility] This lab was ordered by [facility] a nd reported by [facility]. ID Date Data Source [id number] 11/17/2020 09:39:00 AM EDT [facility] [address] [place] [address] PHONE: [phone] FAX: [phone] Name .................. : DENA Alfaro Acct Number.................. : [id number] ROOM. ................. : TR-1A MR Number ................... : [id number] Stay type ............. : E/R Discharge Date......... ... : Admit Date ......... : 11/16/20 Admit Phys .................... : JORGE SCHNEIDER Date of ....... : 1995 Family Phys ................... : NON STAFF Phone .................. : [phone] Age ................................ : 25 Film# .................. .:[id number] Sex ................................. : M Unsigned transcriptions are preliminary reports and do not represent a medical or legal document ELBOW AP & LATERAL LT [id number] COMPLETE:11/16/20 14:10 [id number] Reason(s): Cellulitis LEFT ELBOW X-RAY: FINDINGS: There [...] rce(s) Supporting Document(s) ID Date Data Source [id number] 11/16/2020 01:47:00 PM EDT [facility] 1 OrderSheet [facility] Emergency Department [address] [place] [address] Phone #: ext- [phone] 11/16/2020 13:45 Patient: DENA, KYLIE W Sex: [...] Tucker RN, M.D.;Blood Culture STAT 14:11/16/2020 14:12 Pvypte40u X2 (Perry Cruz RN14:11/16/2020) Kathy;Blood Culture STAT 14:11/16/2020 14:42 [id number] X2 (Perry Cruz RN14:11/16/2020) Kathy;DIAGNOSTIC STUDY ORDERSOrder Description Priority Entered Acknowledged InitialedElbow AP And LAT STAT 14:11/16/2020 14:12 DorisLeft (Oxygen?(No)) Perry Patel RN, M.D.; Reason for Study: Cellulitis, Elbow Pain, Pain 2 OrderSheet [facility] Emergency Department [address] [place] [address] Phone #: ext- [phone] 11/16/2020 13:45 [id number] Sex[facility] : 1995 Age: 25yMEDICATION/IV/DRIP/FLUID ORDERSOrder [...] 16:21 11/16/2020 16:29 Delia(1gm/50ml) IVPB Perry Patel AZ4900 mg with M.D.;Dextrose 50 mlspike bag (D5W)GENERAL ORDERSOrder Description Priority Entered Acknowledged InitialedSling - arm 16:21 11/16/2020 16:36 Perry Tucker RN, M.D.;[Electronically signed by Delia Nelson RN (17:12 11/16/2020)][Electronically signed by Perry Patel M.D. (17:14 11/16/2020)][Electronically locked by Delia Nelson RN (17:12 11/16/2020)] Name Value Range Interpretation Code Description Data Malathi rce(s) Supporting Document(s) ID Date Data Source [id number] 11/16/2020 01:47:00 PM EDT [facility] 1 Medication Reconciliation Report [facility] Emergency Department [address] [place] [address] Phone #: [phone]- [phone] 11/16/2020 13:45 Patient: KYLIE VALDERRAMA Sex: M [...] Dispense 28 tablet. Refills: 0.Substitution permitted.Pharmacy - [facility] - [address] [facility] ; [place], [place] [id number]. . -- Perry Patel M.D. Name Value Range Interpretation Code Description Data Malathi rce(s) Supporting Document(s) ID Date Data Source [id number] 11/16/2020 01:47:00 PM EDT [facility] 1 Medication Administration Record [facility] Emergency Department [address] [place] [address] Phone #: ext- [phone] 11/16/2020 13:45 Patient: KYLIE VALDERRAMA Sex: M : 1995 Age: 25yWeight: 93.4 kgHeight/Length: 72 inBMI: 28ALLERGIES: No Known Drug Allergy Date/Time Medication Administered Medication OrderedStart IV NS W/ BOLUS NS IV 1000 mL Bolus: : Bolus 099468:47 11/16/2020 Dose: IV Fluids mL (X1)Delia Nelson RN Rate: 1000 mL/hr over 1 hour(s)---- Bolus: 1000 mL over 1 hour(s)Stop Dispensed: 1000 mL bag15:47 11/16/2020 Site: #1 right Teetee Nelson RNGiven TORADOL [IVP] (KETOROLAC Toradol 15 mg IVP X1 dose: 15 mg14:35 11/16/2020 TROMETHAMINE) (NOW x1)Delia Nelson RN Dose: 15 mg IVP Site: #1 right ACStart VANCOMYCIN [IVPB] Vancomycin IVPB (15 mg/kg) 326158:37 11/16/2020 Dose: 1300 mg IVPB mg with [...] rce(s) Supporting Document(s) ID Date Data Source [id number] 11/16/2020 01:47:00 PM EDT [facility] 1 General Instructions [facility] Emergency Department [address] [place], [place] [address] Phone #: ext- [phone] 11/16/2020 13:45 Patient: KYLIE VALDERRAMA Sex: M [...] Dispense 28 tablet. Refills: 0.Substitution permitted.Pharmacy - [facility] - [address] [facility] ; [place], [place] [id number]. .Follow-up:Return to the emergency department as needed. [...] to plan of care. 2 General Instructions [facility] Emergency Department [address] [place] [address] Phone #: ext- [phone] 11/16/2020 13:45 Patient: [...] Red areas that spread 3 General Instructions [facility] Emergency Department [address] [place] [address] Phone #: ext- [phone] 11/16/2020 13:45 Patient: KYLIE VALDERRAMA Sex: M : 1995 Age: 25y Swelling or pain that gets worse Fluid leaking from the skin (pus) Fever higher of 100.4 F (38.0 C) or higher after 2 days on antibiotics 0411-7518 [employer] [address] [place] [address], [place] [address]. All rights reserved. This information is not [...] pain and swelling improves. 4 General Instructions [facility] Emergency Department [address] [place] [address] Phone #: ext- [phone] 11/16/2020 13:45 Patient: KYLIE VALDERRAMA Sex: M : 1995 Age: 25y To make an ice pack, put ice cubes in a sealed plastic bag. Wrap the bag in a clean, thin towel or cloth. Never put ice or an ice pack directly on the skin. As the ice melts, be careful to not to get the wrap or splint wet. You may take jmzh-zsa-aacitci pain medicine to treat pain and inflammation, [...] to 48 hours, or as advised Chills 8283-1551 [employer] [address] [place] [address], [place] [address]. All rights reserved. This information is not [...] the sling longer than 5 General Instructions [facility] Emergency Department [address] [place] [address] Phone #: ext- [phone] 11/16/2020 13:45 Patient: [...] should be level with the elbow. [employer] [address] [place] [address], [place] [address]. All rights reserved. This information is not [...] rce(s) Supporting Document(s) ID Date Data Source [id number] 11/16/2020 01:47:00 PM EDT [facility] 1 Clinical Report - Nurses [facility] Emergency Department [address] [place] [address] Phone #: ext- [phone] 11/16/2020 13:45 Patient: KYLIE VALDERRAMA Sex: M : 1995 Age: 25yTRIAGEArrived by private vehicle. Historian: patient. Accompanied by friend. ( [facility] yesterday and dxwith bursitis r/t bacterial infection. pt given bactrim and had dose last night and this am and indomethacin.pt reports arm more swollen today and a low grade fever of 99.5. pt 98.2 orally upon arrival to [facility] ED.).Triage time: 13:48 11/16/2020. Acuity: LEVEL 4.Chief Complaint: LEFT UPPER EXTREMITY PAIN, SWELLING and REDNESS.Alert.This started yesterday. Onset. (0700). ( pt had xray yesterday and it was negative and had blood workdone). He has had swelling and redness.Treatment OFFBEARER SEWER PIPE:(abx). --13:54 11/16/20 Bette Herman R.N.13:48 11/16/20. BP: 135/68. HR: 95. RR: 16. O2 saturation: 100%. Temp: 98.2 F. Pain level now 10/26.--13:54 11/16/20 Bette Herman R.N.Weight: 93.4 kg. Height/Length: 72 inches. BMI: 28. --13:47 11/16/20 Bette Hemran R.N.MedicationsIndomethacin Oral 25 mg, 3x a day. [...] Immunizations: up-to-date. 2 Clinical Report - Nurses [facility] Emergency Department [address] [place] [address] Phone #: ext- [phone] 11/16/2020 13:45 Patient: [...] factors identified. --14:01 11/16/20 Delia Nelson RN.PHYSICAL NECVAMLRYJ80:55 11/16/20. Ambulatory to room.GENERAL / NEURO / [...] to radiology by wheelchair with mask and ekg tech. --14:29 11/16/20 Grover quartz miner, Max, ER Tech1 Correction --14:30 11/16/20 Grover quartz miner Max, ER Tech1 14:27 11/16/20. Patient transported to radiology by wheelchair with mask and ekg tech. --14:30 11/16/20 Grover quartz miner, Max, ER Tech1 Patient returned from radiology by wheelchair with mask and ekg tech. --14:30 11/16/20 Grover quartz miner Max, ER Tech1 14:35 11/16/2020 Site #1 [...] redness, or 3 Clinical Report - Nurses [facility] Emergency Department [address] [place] [address] Phone #: ext- [phone] 11/16/2020 13:45 Patient: KYLIE VALDERRAMA Sex: M [...] Delia Nelson RN16:15 11/16/20. Orthopedic surgery consulted ([facility] receptionist). --16:35 11/16/20 FRANKY Talavera16:27 11/16/2020 Started 1 gm of CEFTRIAXONE (1GM/50ML) IVPB in bag #1 50 mL; at 100 mL/hr over30 minute(s) via site #1. via IV pump. Allergies verified and confirmed 5 rights. IV patency established. IVsite checked: no pain, redness, or swelling. IV flushed thoroughly pre- and post-medication administration. 4 Clinical Report - Nurses [facility] Emergency Department [address] [place] [address] Phone #: ext- [phone] 11/16/2020 13:45 Patient: [...] course information. Prescription(s) sent electronically to pharmacy ([facility]). Patient verbalized understanding. Written instructions provided in Welsh. The patient was discharged home and accompanied by energy sales consultant. He left ambulatory and via private vehicle. Band Head Saw Operator driving. --17:11 11/16/20 Delia Nelson RN 17:00 11/16/20. BP: 126/89. MAP: 101. HR: 61. RR: 14. O2 saturation: 99%. Temp: 98.8 F. Pain level now: 0/10. --17:11 11/16/20 Delia Nelson RN.Locked/Released at 11/16/2020 17:12 by Delia Nelson RN Name Value Range Interpretation Code Description Data Malathi rce(s) Supporting Document(s) ID Date Data Source [id number] 11/16/2020 01:47:00 PM EDT [facility] 1 Clinical Report - Physicians/Mid Levels [facility] Emergency Department [address] [place] [address] Phone #: ext- [phone] 11/16/2020 13:45 Patient: [...] had redness and swelling. (pt seen at [facility] ER last night for this problem, was dxed w left elbow bursitis, workup was done, WBC 70489, no shift, ESR, CRP nml, pt was given Ceftriaxone iv and Septra PO, prescribed Septra and Indocin; no sling, elbow worse today). Patient denies an injury. Similar symptoms previously. None. Recent medical care: The patient was seen recently at another facility in the emergency department. ( [facility] ER last evening, see ER records).REVIEW [...] day. 2 Clinical Report - Physicians/Mid Levels [facility] Emergency Department [address] [place] [address] Phone #: ext- [phone] 11/16/2020 13:45 Patient: [...] 10.4) 3 Clinical Report - Physicians/Mid Levels [facility] Emergency Department [address] [place] [address] Phone #: ext- [phone] 11/16/2020 13:45 Patient: KYLIE VALDERRAMA Sex: M [...] Male GFR Interprentation 20-49 yrs >60 mL/min Aditvz62-79 yrs >56 mL/min Normal 60-69 yrs >49 mL/min Normal 70-79yrs>42 mL/min Normal 80 and above >35 mL/min Normal Female GFRInterpretation 20-39 yrs >60 mL/min Normal 40-49 yrs >58 mL/minNormal 50-59 yrs >51 mL/min Normal 60-69 yrs >45 mL/min Zeqzrs44-61 yrs >39 mL/min Normal 80 and above >32 mL/min NormalSed. Rate: (OXANA: 11/16/2020 14:26) ( MsgRcvd 11/16/2020 16:01) Final results Test Result Flag Units (Reference) SED RATE 2 mm/hr (0 - 15) SED RATE REENTER 2 4 Clinical Report - Physicians/Mid Levels [facility] Emergency Department [address] [place] [address] Phone #: ext- [phone] 11/16/2020 13:45 Patient: [...] givenCeftriaxone IV and Septra PO yesterday at [facility] ER, on since; will do septic joint workup, give ivfluids, toradol iv and vancomycin iv 15:54 11/16/20. WBC 23322 74%N, CRP 34 high today, lactic 0.8 nml, uric acid nml, elbow x-ray nml, ESR 2 nml 16:22 11/16/20. pt is doing markedly better, less red less swollen, feels better, moves elbow normally w/o issues; workup compared to yesterday and WBC improved slightly, CRP up, rest is nml; case discussed w Dr. Guardado, ortho on-call at [facility], who saw pt in their ER [...] infection. 5 Clinical Report - Physicians/Mid Levels [facility] Emergency Department [address] [place] [address] Phone #: ext- [phone] 11/16/2020 13:45 Patient: KYLIE VALDERRAMA Sex: M [...] Dispense 28 tablet. Refills: 0. Substitution permitted. [facility] [address] [place], [place] [phone]. . Follow-up: Return to the emergency department [...] 11/16/2020 17:14) 6Clinical Report - Physicians/Mid Levels [facility] Emergency Department [address] [place] [address] Phone #: ext- [phone] 11/16/2020 13:45 Patient: KYLIE VALDERRAMA Sex: M : 1995 Age: 25y Name Value Range Interpretation Code Description Data Malathi rce(s) Supporting Document(s) ID Date Data Source [id number] 11/21/2020 05:01:00 PM EDT [facility] [address] Name Value Range Interpretation Code Description Data Malathi rce(s) Supporting Document(s) Bacteria identified in Blood by Culture [facility] NO GROWTH AFTER 5 DAYS ID Date Data Source [id number] 11/22/2020 04:15:00 PM EDT [facility] Name Value Range Interpretation Code Description Data Malathi rce(s) Supporting Document(s) CULTURE BLOOD [facility] spital _CULTURE BLOOD_ TEST PERFORM ED AT [facility] [address] [place] [address] CLIA# [id number] SEE SCANNED REPORT{ PRELIM ID Date Data Source [id number] 11/16/2020 03:31:00 PM EDT [facility] Name Value Range Interpretation Code Description Data Malathi rce(s) Supporting Document(s) Lactic w Rfx (if elevated) 0.8 mmol/L 0.5-2.0 N [facility] ID Date Data Source [id number] 11/21/2020 03:05:00 PM EDT [facility] Name Value Range Interpretation Code Description Data Malathi rce(s) Supporting Document(s) Bacteria identified in Blood by Culture [facility] NO GROWTH AFTER 5 DAYS ID Date Data Source [id number] 11/22/2020 04:15:00 PM EDT [facility] Name Value Range Interpretation Code Description Data Malathi rce(s) Supporting Document(s) CULTURE BLOOD [facility] spital _CULTURE BLOOD_ TEST PERFORM ED AT [address] [address] CLIA# [id number] SEE SCANNED REPORT{ PRELIM ID Date Data Source [id number] 11/16/2020 05:10:00 PM EDT [facility] Value Range Interpretation Code Description Data Malathi rce(s) Supporting Document(s) LACTIC ACID (LACTATE) [facility] TEST PERFORMED AT [address] [address] CLIA# [id number] SEE SCANNED REPORT ID Date Data Source [id number] 11/16/2020 04:01:00 PM EDT [facility] Value Range Interpretation Code Description Data Malathi rce(s) Supporting Document(s) Erythrocyte sedimentation rate by Westergren method 2 mm/hr 0 - 15 [facility] SED RATE REENTER 2 [facility] ID Date Data Source [id number] 11/16/2020 03:47:00 PM EDT [facility] Name Value Range Interpretation Code Description Data Malathi rce(s) Supporting Document(s) CBC W/AUTOMATED DIFF [facility] COMPLETE BLOOD COUNT Leukocytes [#/volume] in Blood by Automated count 17.3 10^3/uL 4.2 - 11.0 H [facility] Erythrocytes [#/volume] in Blood by Automated count 4.82 10^6/uL 4. 50 - 6.30 [facility] Hemoglobin [Mass/volume] in Blood 15.1 g/dL 14.0 - 16.0 [facility] Hematocrit [Volume Fraction] of Blood by Automated count 45.0 % 4 1.0 - 51.0 [facility] Erythrocyte mean corpuscular volume [Entitic volume] by Auto mated count 93.4 fL 80.0 - 94.0 [facility] Erythrocyte mean corpuscular hemoglobin [Entitic mass] by Automated count 31.3 pg 27.0 - 34.0 [facility] Erythrocyte mean corpuscular hemoglobin concentration [Mass/volume] by Automated count 33.6 g/dL 31.0 - 36.0 [facility] Erythrocyte distribution width [Ratio] by Automated count 12.9 % 11.5 - 14.8 [facility] Platelets [#/volume] in Blood by Automated count 196 10^3/uL 150 - 45 0 [facility] Platelet mean volume [Entitic volume] in Blood by Automated count 10.3 fL 7.4 - 10.4 [facility] Neutrophils/100 leukocytes in Blood by Automated count 73.8 % 37. 0 - 80.0 [facility] Lymphocytes/100 leukocytes in Blood by Manual count 14.7 % 25.0 - 40.0 L [facility] Monocytes/100 leukocytes in Blood by Automated count 9.7 % 3.0 - 8.0 H [facility] Eosinophils/100 leukocytes in Blood by Automated count 1.0 % 0.0 - 7.0 [facility] Basophils/100 leukocytes in Blood by Automated count 0.3 % 0.0 - 2.0 [facility] %IG 0.5 % 0.0 - 0.0 [facility] 0.0 % 0.0 - 0.0 [facility] al Neutrophils [#/volume] in Blood by Automated count 12.77 10^3/uL 2. 00 - 6.90 H [facility] Lymphocytes [#/volume] in Blood by Automated count 2.54 10^3/uL 0.60 - 3.40 [facility] Monocytes [#/volume] in Blood by Automated count 1.68 10^3/uL 0.00 - 0.90 H [facility] Eosinophils [#/volume] in Blood by Automated count 0.17 10^3/uL 0.00 - 0.70 [facility] Basophils [#/volume] in Blood by Automated count 0.05 10^3/uL 0.00 - 0.20 [facility] #IG 0.08 10^3/uL 0.00 - 0.10 [facility] #NRBC 0.00 10^3/uL 0.00 - 0.00 [facility] MANUAL DIFF SEE BELOW [facility] ital Segmented neutrophils/100 leukocytes in Blood by Manual count 80 % 37 - 80 [facility] %LYMPH 12 % 25 - 40 L [facility] al %MONO 7 % 3 - 8 [facility]EOS 1 % 0 - 7 [facility] al RBC MORPH NOT INDICATED [facility] ID Date Data Source [id number] 11/16/2020 03:47:00 PM EDT [facility] Name Value Range Interpretation Code Description Data Malathi rce(s) Supporting Document(s) Urate [Mass/volume] in Serum or Plasma 3.9 MG/DL 2.5 - 8.5 [facility] ID Date Data Source [id number] 11/16/2020 03:32:00 PM EDT [facility] Name Value Range Interpretation Code Description Data Malathi rce(s) Supporting Document(s) C reactive protein [Mass/volume] in Serum or Plasma by High sensitivity method 34.42 MG/L 1.00 - 3.00 H [facility] CDC/S HS-CRP CUT-OFF: RELATIVE RISK: <1.0 mg/L Low 1.0 - 3.0 mg/L Average >3.0 mg/L High Optimally, the average of HS-CRP results repeated two weeks apart should be used for risk assessment. ID Date Data Source [id number] 11/16/2020 03:24:00 PM EDT [facility] Name Value Range Interpretation Code Description Data Malathi rce(s) Supporting Document(s) COMPREHENSIVE METABOLIC PANEL [facility] COMPREHENSIVE METABOLIC PANEL Sodium [Moles/volume] in Serum or Plasma 138 mEq/L 134 - 153 [facility] Potassium [Moles/volume] in Serum or Plasma 3.9 mEq/L 3.6 - 5.0 [facility] Chloride [Moles/volume] in Serum or Plasma 103 mEq/L 98 - 107 [facility] Carbon dioxide, total [Moles/volume] in Serum or Plasma 25 MEQ/L 22 - 30 [facility] Glucose [Mass/volume] in Serum or Plasma 96 MG/DL 70 - 99 [facility] BUN 16 MG/DL 7 - 21 [facility] al Creatinine [Mass/volume] in Serum or Plasma 0.9 MG/DL 0.7 - 1.5 [facility] BUN/CREAT 18 8 - 27 [facility] Protein [Mass/volume] in Serum or Plasma 6.5 G/DL 6.3 - 8.2 [facility] Albumin [Mass/volume] in Serum or Plasma 4.1 G/DL 3.9 - 5.0 [facility] Globulin [Mass/volume] in Serum by calculation 2.4 GM/DL 2.4 - 3.2 [facility] A/G RATIO 1.7 0.8 - 2.0 [facility] Calcium [Mass/volume] in Serum or Plasma 9.3 MG/DL 8.4 - 10.2 [facility] Bilirubin.total [Mass/volume] in Serum or Plasma <0.7 MG/DL 0.2 - 1.3 [facility] Alkaline phosphatase [Enzymatic activity/volume] in Serum or Plasma 67 U/L 38 - 126 [facility] Aspartate aminotransferase [Enzymatic activity/volume] in Serum or Plasma 40 U/L 5 - 40 [facility] Alanine aminotransferase [Enzymatic activity/volume] in Seru m or Plasma 33 U/L 7 - 56 [facility] Anion gap 3 in Serum or Plasma 10.0 mmol/L 8.0 - 16.0 [facility] AGE 25 yrs [facility] al NON-AA GFR >60 mL/min [facility] ital AFR AMER GFR >60 mL/min [facility] Male GFR In terprentation 20-49 [...] >32 mL/min Normal ID Date Data Source [id number] 10/23/2020 12:15:55 PM EDT [facility] PC[facility]: Kylie EarpDOB: 1995Provider: ChandaTen [...] styloidectomy; denervation with posterior interosseous nerve excision. ([place] Mitus). Patient is working at this time at [...] pronation, supination. Risks 60 flexion, 60 extension. Policy Change Clerk strength right 85 pounds, left 95 pounds.X- [...] this time. 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 DisclaimersThis document was dictated and electronically signed using [employer] software. A reasonable attempt at proof reading has been made to minimize errors. Please call with any questions. Signatures Electronically signed by : Ten Armas M.D.; Oct 23 2020 12:15PM EST (Author) Name Value Range Interpretation Code Description Data Malathi rce(s) Supporting Document(s) ID Date Data Source [id number] 10/13/2020 08:52:00 AM EDT [facility] Name Value Range Interpretation Code Description Data Malathi rce(s) Supporting Document(s) SARS coronavirus 2 RNA Not Detected [facility] This lab was ordered by [facility] and reported by [facility]. ID Date Data Source [id number] 09/26/2020 10:52:53 PM EDT [facility] PCName: Kylie EarpDOB: 1995Provider: Anya [...] for PT/OT to take place in the [place] area. It was suggested that he return [...] adult; ADAM = N; Verified Transmission to [facility]; Last Updated By: Rossy Amezcua; 09/17/2020 10:48:22 AM X-Ray I Wrist - 3 views (XRays were ordered, obtained and interpreted today in theoffice. Indication: pain/dysfunction.); Status:Complete; Done: [id number] Perform:[id number]; Due:[id number]; Last Updated By:Idalia Holliday; 09/17/2020 10:20:51 AM;Ordered; [...] He will ice as needed and use [id number] NSAIDs. I will discuss his x-rays with Dr. Armas and also encouraged Kylie to set up a follow-up appointment in 3 to 4 weeks to perhaps consider a steroid injection. For now, he will limit activities that exacerbate his symptoms. He is affiliated. 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 This document was dictated and electronically signed using [employer] software. A reasonable attempt at proof reading [...]
== END 2021-04-28 15:33 | disposition left against medical advice (07) ==
LOC: M ED 15:19
DX: Z53.29 Procedure and treatment not carried out because of patient's decision for other reasons (principal)

== ENCOUNTER 2023-01-14 02:37 | Emergency (ER) | payer OTHER ==
[~2023-01-14] VITALS: Ht 182.9 cm; Wt 100.0 kg
[2023-01-14 08:43] VITALS: BP 151/84; TEMP 97.4; O2SAT 97
== END 2023-01-14 08:46 | disposition home or self-care (01) ==
LOC: M ED 02:37
DX: S02.2XXA Fracture of nasal bones, initial encounter for closed fracture (principal); Y04.0XXA Assault by unarmed brawl or fight, initial encounter; Y92.410 Unspecified street and highway as the place of occurrence of the external cause; F17.290 Nicotine dependence, other tobacco product, uncomplicated